=== PATIENT | male | born 1955 | race Caucasian/White ===

== ENCOUNTER 2016-02-18 11:31 | Observation (INO) | payer BC, OTHER ==
[~2016-02-18] VITALS: Ht 177.8 cm; Wt 131.5 kg
[2016-02-18 13:26] LABS: MEAN CORPUSCULAR HEMOGLOBIN 26.8 pg (27.0-33.0); MEAN CORPUSCULAR HGB CONC 31.8 g/dl (32.0-36.5); MEAN CORPUSCULAR VOLUME 84.1 fl (80.0-96.0); PLATELET COUNT, AUTOMATED 135 k/mm3 (150-450); RED CELL DISTRIBUTION WIDTH 13.5 % (11.5-14.5); WHITE BLOOD COUNT 5.3 K/mm3 (4.0-10.0)
[2016-02-18 13:35] LABS: CALCIUM LEVEL 8.3 MG/DL (8.8-10.2); CREATININE FOR GFR 1.42 MG/DL (0.70-1.30); GLOMERULAR FILTRATION RATE 53.8 (>49); POTASSIUM SERUM 5.1 MEQ/L (3.5-5.1)
[2016-02-18 13:42] LABS: BASOPHILS 1 % (0-4); EOSINOPHILS 3 % (0-5)
[2016-02-18 13:43] LABS: ANISOCYTOSIS 1+; POIKILOCYTOSIS 1+
--- NOTE | 2016-02-18 13:49 | REP ---
CHEST, TWO VIEWS: There is no evidence of acute infiltrate. No pleural effusion is seen. The heart is normal in size. The mediastinal silhouette is unremarkable. The visualized osseous structures are intact. There are degenerative changes of the spine. IMPRESSION: No acute pulmonary disease. Signed by Feliberto Padilla MD 02/18/2016 05:26 P
[2016-02-18] MEDS ORDERED: ATEN50TA2 PO (15:05)
[2016-02-18] MEDS ORDERED: METF1000 PO (15:05)
[2016-02-18] MEDS ORDERED: OMEP40CA2 PO (15:05)
[2016-02-18] MEDS ORDERED: LOVA40TA PO (15:05)
[2016-02-18] MEDS ORDERED: ASPI1TAB PO (15:05)
[2016-02-18] MEDS ORDERED: FURO40TA2 PO (15:05)
[2016-02-18] MEDS ORDERED: SPIR25TA2 PO (15:05)
[2016-02-18] MEDS ORDERED: DRIS50002 PO (15:05)
[2016-02-18] MEDS ORDERED: SITA50TAB PO (15:05)
[2016-02-18] MEDS ORDERED: FOLI1TAB2 PO (15:05)
[2016-02-18] MEDS ORDERED: GLYB5TA PO (15:05)
[2016-02-18] MEDS ORDERED: GLUCAGON FOR INJ 1 MG VIAL (J1610) SC PRN (15:15)
[2016-02-18] MEDS ORDERED: DEXTROSE 50% 50 ML SYRINGE IV PRN (15:15)
[2016-02-18] MEDS ORDERED: GLUCOSE 4 GM CHEW TABLET PO PRN (15:15)
--- NOTE | 2016-02-18 16:06 | HPEPDOC ---
General Date of Admission Feb 18, 2016 at 15:19 Chief Complaint The patient is a 60-year-old male admitted with a reason for visit of Atypical Chest Pain. Source: Patient Exam Limitations: No limitations History of Present Illness Mr. Willingham is a 60 year old male with past medical history of COPD, diabetes type 2, hypertension, depression who presents this afternoon after he began feeling dizzy (as if the room was spinning) this morning at work, patient also notes that he has had left superior breast,chest pressure for the past 8 years that was also continuously bothering him today-this is chronic. The patient denied the dizziness worsening with standing from a seated or supine position, states that he felt anxious while he was dizzy, but denied sweating, worsening of his chronic shortness of breath from his COPD, cough, pain in his jaw, nausea, vomiting, or loss of consciousness. The patient does admit to increased heartburn for the past 3 weeks that he seems to think it is worsened with physical exertion. Patient admits to a very poor, fatty diet and low physical activity. The patient states that he had a cardiac cath. In [facility] 8 years ago that was clean, ; claims he was also supposed to have a stress test done by [facility] in [facility] but was unable to afford the procedure and thus never had it done. The results of the coronary cath done at [place] showed mild coronary disease in 2007 ( pts outpt cardio office was contacted), he was last seen by the [facility] in 2011. Patient denies headache, blurred vision or any changes in his bowel or urinary habits. Patient also denies being ill recently, denies fevers, chills, muscle aches. Patient states that the left breast, chest pressure is not made worse with palpitation or inspiration, and admits that it does not feel unchanged from the prior 8 years. Patient seemed to be more concerned with the dizziness that he had experienced earlier and was currently still experiencing at bedside exam. Home Medications Scheduled Aspirin (Aspirin 81) 81 Mg Tab 81 MG PO DAILY (Reported) Atenolol (Atenolol) 50 Mg Tab 50 MG PO DAILY (Reported) Folic Acid (Folic Acid) 1 Mg Tab 1 MG PO DAILY (Reported) Furosemide (Furosemide) 40 Mg Tab 40 MG PO DAILY (Reported) Glyburide (Glyburide) 5 Mg Tab 10 MG PO BID (Reported) Lovastatin (Lovastatin) 40 Mg Tab 40 MG PO DAILY (Reported) Metformin Hydrochloride (Metformin HCl) 1,000 Mg Tab 1,000 MG PO BID (Reported ) Omeprazole (Omeprazole) 40 Mg Cap 40 MG PO DAILY (Reported) Sitagliptin (Januvia) 50 Mg Tab 50 MG PO DAILY (Reported) Spironolactone (Spironolactone) 25 Mg Tab 25 MG PO DAILY (Reported) Vitamin D (Drisdol) 50,000 Unit Cap 50,000 UNIT PO QWEEK (Reported) Allergies Coded Allergies: Unclassified Drugs (Unverified Allergy, Unknown, ANTIDEPRESSANT - RASH, 02/18/16) Past Medical History Medical History COPD depression HTN DM2 Surgical History umbilical hernia repair Family History Significant Family History: No pertinent family hx Social History * Smoker: current smoker (2 ppd for past 30 yrs) Alcohol: heavy (4-5 beers a day since teens) Drugs: denies Recent Travel/Sick Contacts: Denies: Recent travel Psychosocial History: No pertinent psych hx Social History 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 Dyspnea Gastrointestinal: Denies: Abdominal Pain, Constipation, Diarrhea, Nausea, Vomiting Genitourinary: Denies: Dysuria, Frequency, Hematuria, Incontinence Hematologic: Denies: Bleeding Excessively, Bruising Neurological: Denies: Incoordination, Numbness, Weakness Psych: Reports: Mood Normal, Denies: Anxiety, Depression, Memory Issues Physical Examination General Exam: Positive: Alert, Cooperative, No Acute Distress Eye Exam: Positive: Conjunctiva & lids normal, EOMI, PERRLA Neck Exam: Positive: Supple, Negative: JVD Chest Exam: Positive: Clear to auscultation, Diminished, Normal air movement, Negative: Rales, Rhonchi Heart Exam: Positive: Normal S1, Normal S2, Rate Normal, Negative: Gallops, Murmurs, Rubs Telemetry: Positive: Other Telemetry: (some bigemingy noted) Abdomen Exam: Positive: Normal bowel sounds, Soft, Negative: Hepatospenomegaly, Mass, Tenderness Extremity Exam: Positive: Edema (+1 right LE), Negative: Clubbing, Cyanosis Skin Exam: Positive: Nl turgor and temperature Vital Signs bp 139/62 hr 70 rr 20 temp 99.1 F 99% on Room air Laboratory Data Labs 24H Laboratory Tests 2 02/18/16 12:47: Anion Gap 9, Anisocytosis 1+, White Blood Count 5.3, Red Blood Count 3.66L, Hemoglobin 9.8L, Hematocrit 30.8L, Mean Corpuscular Volume 84.1, Mean Corpuscular Hemoglobin 26.8L, Mean Corpuscular Hemoglobin Concent 31.8L, Red Cell Distribution Width 13.5, Platelet Count 135L, Neutrophils (%) (Auto) , Lymphocytes (%) (Auto) , Monocytes (%) (Auto) , Eosinophils (%) (Auto) , Basophils (%) (Auto) , Neutrophils # (Auto) , Lymphocytes # (Auto) , Monocytes # (Auto) , Eosinophils # (Auto) , Basophils # (Auto) , Basophils (Manual) 1, Blood Urea Nitrogen 19H, Creatinine 1.42H, Sodium Level 140, Potassium Level 5.1 , Chloride Level 104, Carbon Dioxide Level 27, Calcium Level 8.3L, Total Creatine Kinase 240, Creatine Kinase MB 3.9H, Creatine Kinase MB Relative Index 1.62, Eosinophils (Manual) 3, Glomerular Filtration Rate 53.8, Large Unclassified Cells # , Large Unclassified Cells % , Lymphocytes (Manual) 25, Magnesium Level 2.0, Monocytes (Manual) 4, Neutrophils 67, Platelet Estimate DECREASED, Poikilocytosis 1+, Troponin I 0.10 CBC/BMP Laboratory Tests 02/18/16 12:47 Calcium Level 8.3 L, Total Creatine Kinase 240, Red Blood Count 3.66 L, Mean Corpuscular Volume 84.1, Mean Corpuscular Hemoglobin 26.8 L, Mean Corpuscular Hemoglobin Concent 31.8 L, Red Cell Distribution Width 13.5, Neutrophils (%) ( Auto) , Lymphocytes (%) (Auto) , Monocytes (%) (Auto) , Eosinophils (%) (Auto) , Basophils (%) (Auto) , Neutrophils # (Auto) , Lymphocytes # (Auto) , Monocytes # (Auto) , Eosinophils # (Auto) , Basophils # (Auto) (1) Chest pain, atypical Status: Acute Response to Treatment: Stable Assessment & Plan: Will R/O ACS first set of troponin .10 will repeat and trend repeat EKG in AM admit to tele unit in hospital tele in ED showed some bigeminy- will check Mag level EKG in ED showed some ST depression in lat. leads- no prior EKG to compare pt says pain isn't bothering him, and thus doesn't want anything for the pain (2) HTN (hypertension) Status: Chronic Response to Treatment: Stable Assessment & Plan: BP stable but a bit elevated on presentation to ED, pt states he was nervous will continue home medication- have stopped lasix and spironolactone as pt.'s LORENZO may be from dehydration. continue to monitor (3) Dizziness Status: Acute Response to Treatment: Stable Assessment & Plan: less likely 2/2 cardiac, but will R/O ACS may be due to dehydration pt received 1 L NS in ED will hold home lasix and spironolactone for now- will monitor output orthostatics ordered (4) Diabetes mellitus Status: Chronic Response to Treatment: Stable Assessment & Plan: held oral home medication sliding scale insulin (5) LORENZO (acute kidney injury) Status: Acute Assessment & Plan: creatine 1.4 today only one prior to compare to, 1.1 may be 2/2 dehydration have held home lasix and spironolactone pt received 1 L NS in ED continue to monitor (6) COPD (chronic obstructive pulmonary disease) Status: Chronic Response to Treatment: Stable Assessment & Plan: stable (7) DVT prophylaxis Status: Acute Assessment & Plan: heparin 5000 sc q8h in light of pt lorenzo Plan / VTE VTE Prophylaxis Ordered?: Yes GME ATTESTATION GME ATTESTATION My preceptor for this patient encounter was physically present in the building during the encounter and was fully available. As needed, all aspects of the patient interview, examination, medical decision making process, and medical care plan development were reviewed and approved by the preceptor. Preceptor is aware and concurs with the plan as stated in the body of this note and will attest to such by his/her cosignature. ATTENDING NOTE Attending Note: I have independently examined this patient and all aspects of the exam and treatment decisions have been discussed with the resident. A member of the hospitalist staff will continue to follow this patient through discharge. ARNEL NICOLE DO Feb 18, 2016 16:06 LUCY EASON DO Feb 18, 2016 20:48
[2016-02-18] MEDS: HumaLOG INSULIN (NovoLOG) PER UNIT SC SCH (17:30)
[2016-02-18 19:52] VITALS: BP 158/65
--- NOTE | 2016-02-18 20:40 | EDDOCDS ---
Nurse's Notes [facility] Name: Feliberto Willingham Age: 60 yrs Sex: Male : 1955 Arrival Date: 02/18/2016 Time: 11:31 Bed Family 1 Private MD: Eduardo Echols Diagnosis: Chest pain, unspecified;Ventricular premature depolarization-in [place] Presentation: 02/17 11:34 Presenting complaint: EMS states: heartburn and chest pressure and dizziness for past 2 ms2 weeks---today chest pressure is at worst----hx chf,COPD DM. Presenting complaint: fsbs ---266 on scene. Aspirin was taken [employer]. 325mg given by ems. Adult Sepsis Screening: Adult Sepsis Screening: The patient does not have new or worsening altered mentation. Patient's respiratory rate is less than 22. Systolic blood pressure is greater than 100. Patient has a qSOFA score of 0- Negative Sepsis Screen. Suicide/Homicide risk assessment- the patient denies having any suicidal and/or homicidal ideations and does not present with any other emotional, behavioral or mental health complaints. Status: Patient is not a director of clinical services or dependent. Transition of care: patient was not received from another setting of care. 11:34 Acuity: GRETCHEN Level 3 ms2 11:34 Method Of Arrival: Ambulance ms2 Triage Assessment: 11:44 General: Appears in no apparent distress, Behavior is cooperative. Pain: Location: left ms2 anterior chest Pain currently is 1 out of 10 on a pain scale. Pt Declines HIV testing. The patient is triaged at the bedside. See Assessment in Nurses Notes section of ED record. Neurological: Level of Consciousness is awake, alert, obeys commands. Cardiovascular: Chest pain is described as Pain is 1 out of 10 on a pain scale. radiates Does not radiate. episodes are intermittent began began 2 days ago. Respiratory: No deficits noted. Airway is patent Respiratory effort is even, unlabored, Respiratory pattern is regular, symmetrical. GI: Abdomen is obese. Derm: Skin is pink, warm & dry. Musculoskeletal: Range of motion intact in all extremities. Historical: - Allergies: antidepressent; - Home Meds: 1. metformin 1,000 mg oral tab 2 times per day (Last dose: 02/18/2016 07:00) 2. spironolactone 25 mg Oral tab 1 tab once daily (Last dose: 02/18/2016 07:00) 3. atenolol 50 mg Oral tab 1 tab once daily (Last dose: 02/18/2016 07:00) 4. furosemide 40 mg Oral tab 1 tab once daily (Last dose: 02/18/2016 07:00) 5. glyburide 5 mg Oral tab 2 tabs 2 times per day (Last dose: 02/18/2016 07:00) 6. januvia 50mg--one daily (Last dose: 02/18/2016 07:00) 7. lovastatin 40 mg Oral tab 1 tab once daily (Last dose: 02/18/2016 07:00) 8. folic acid 1 mg Oral tab 1 tab once daily (Last dose: 02/18/2016 07:00) 9. omeprazole 40 mg Oral cpDR 1 cap once daily (Last dose: 02/18/2016 07:00) 10. Mobic 15 mg oral tab 1 tab once daily (Last dose: 02/18/2016 07:00) 11. vitamin D3---50,000 units -once weekly 12. WALMERCDEEZT ON ARSENAL STR. CALLED FOR LIST - PMHx: COPD; DM; HTN; - PSHx: umbilical hernia; - Social history: Smoking status: Patient uses tobacco products, current every day smoker. No barriers to communication noted, The patient speaks fluent [place] Irish. - Family history: Not pertinent. - : The pt / caregiver states he / she is not on anticoagulants. Home medication list is obtained from the patient. - Exposure Risk Screening:: None identified. Screenin:50 Screening information is obtained from the patient. Fall risk: No risks identified. ms2 Assistance ADL's: requires no assistance with activities of daily living. Abuse/DV Screen: The patient / caregiver reports he/she is: not in a situation that causes fear, pain or injury. Nutritional screening:. Nutritional screening: pt has DM. Advance Directives: Currently, there is no health care proxy. There is no active DNR order. There is no living will. There is no Power of Resident Associate. Advance directive information has not previously been placed in an [facility] medical record. Further advance directive information is declined. home support is adequate. Assessment: 11:46 Cardiovascular: Rhythm is sinus rhythm No ectopy. ms2 12:53 General: Appears in no apparent distress, Behavior is cooperative, pt states still a ms2 little dizzy. Neurological: Level of Consciousness is awake, alert, obeys commands. Respiratory: No deficits noted. Airway is patent Respiratory effort is even, unlabored, Respiratory pattern is regular, symmetrical. Derm: Skin is pink, warm & dry. Musculoskeletal: Range of motion intact in all extremities. 13:18 Adult Sepsis Screening: The patient does not have new or worsening altered mentation. ms2 Patient's respiratory rate is less than 22. Systolic blood pressure is greater than 100. Patient has a qSOFA score of 0- Negative Sepsis Screen. General: Appears in no apparent distress, dr thakkar aware pt walked to BR and slight dizziness only(at 1300)---pt currently in bigeminy---pt states does not notice any skipping of beats ---only at times hears heartbeat in ears with lying down. Cardiovascular: Rhythm is BIgeminy. Respiratory: No deficits noted. Derm: Skin is pink, warm & dry. Musculoskeletal: No deficits noted. Range of motion intact in all extremities. 14:28 General: Appears. Pain: Denies pain. Neurological: No deficits noted. Cardiovascular: ms2 Rhythm is sinus rhythm with unifocal PVCs. Respiratory: No deficits noted. Derm: Skin is pink, warm & dry. Musculoskeletal: Range of motion intact in all extremities. 14:39 General: hospitalist in seeing pt. ms2 15:50 Adult Sepsis Screening: The patient does not have new or worsening altered mentation. ms2 Patient's respiratory rate is less than 22. Systolic blood pressure is greater than 100. Patient has a qSOFA score of 0- Negative Sepsis Screen. General: Appears in no apparent distress, given box lunch. Behavior is cooperative. Neurological: Level of Consciousness is awake, alert, obeys commands. Cardiovascular: Rhythm is sinus rhythm with unifocal PVCs. Respiratory: No deficits noted. GI: Abdomen is obese. Derm: Skin is pink, warm & dry. Musculoskeletal: Range of motion intact in all extremities. 16:54 General: Appears in no apparent distress, Behavior is cooperative. Pain: Denies pain. ms2 Neurological: No deficits noted. Cardiovascular: Rhythm is sinus rhythm with unifocal PVCs. Respiratory: No deficits noted. Derm: Skin is pink, warm & dry. Musculoskeletal: No deficits noted. 17:22 General: Appears in no apparent distress, comfortable. Pain: Denies pain. Neurological: ms2 No deficits noted. Cardiovascular: Rhythm is sinus rhythm with unifocal PVCs. Derm: Skin is pink, warm & dry. 18:30 General: Appears in no apparent distress, pt impatient on wait to floor. Behavior is ms2 cooperative. Pain: Denies pain. Neurological: No deficits noted. Cardiovascular: Rhythm is sinus rhythm with unifocal PVCs. Respiratory: Respiratory effort is even, unlabored. Derm: Skin is pink, warm & dry. 19:35 General: Appears in no apparent distress, comfortable, Behavior is cooperative, took ms2 dinner well. Pain: Denies pain. Neurological: Level of Consciousness is awake, alert, obeys commands. Cardiovascular: Rhythm is sinus rhythm No ectopy. Respiratory: No deficits noted. Airway is patent Respiratory effort is even, unlabored, Respiratory pattern is regular, symmetrical. Derm: Skin is pink, warm & dry. Musculoskeletal: Range of motion intact in all extremities. Vital Signs: 11:43 BP 172 / 77; Pulse 70; Resp 20 S; Temp 99.1(T); Pulse Ox 99% on R/A; Pain 02/21; ms2 11:47 BP 172 / 77 LA Sitting (auto/lg); Pulse 76; Resp 18; Temp 99.1(O); Pulse Ox 98% on R/A; jrd Weight 131.54 kg (R); Height 5 ft. 10 in. (177.80 cm) (R); Pain 02/21; 12:14 BP 145 / 68 (auto/); ms2 12:15 Pulse 66 MON; Pulse Ox 97% ; ms2 12:29 BP 134 / 63 (auto/); ms2 12:30 Pulse 70 MON; ms2 12:44 BP 136 / 59 (auto/); ms2 12:45 Pulse 66 MON; Resp 20 S; Pulse Ox 97% on R/A; ms2 12:53 BP 146 / 67 Supine (auto/); ms2 12:53 Pulse 66 MON; Resp 20 S; Pulse Ox 98% ; ms2 12:55 BP 130 / 79 Sitting (auto/); ms2 12:55 Pulse 66 MON; Resp 20 S; Pulse Ox 97% ; ms2 12:57 BP 145 / 64 Standing (auto/); ms2 12:57 Pulse 76 MON; Resp 20 S; Pulse Ox 96% ; ms2 13:14 BP 139 / 60 (auto/); ms2 13:15 Pulse 64 MON; Resp 20 S; Pulse Ox 97% ; ms2 13:29 BP 144 / 65 (auto/); ms2 13:30 Pulse 64 MON; Resp 20 S; Pulse Ox 98% ; ms2 13:44 BP 130 / 59 (auto/); ms2 13:45 Pulse 66 MON; Resp 20 S; Pulse Ox 97% ; ms2 13:59 BP 132 / 59 (auto/); ms2 14:00 Pulse 64 MON; Resp 20 S; Pulse Ox 97% ; ms2 14:14 BP 135 / 63 (auto/); ms2 14:15 Pulse 68 MON; Pulse Ox 98% ; ms2 14:29 BP 139 / 62 (auto/); ms2 14:30 Pulse 68 MON; Resp 20 S; Pulse Ox 98% ; ms2 14:35 BP 128 / 61 (auto/); ms2 14:35 Pulse 70 MON; Resp 20 S; Pulse Ox 98% ; ms2 14:44 BP 146 / 65 (auto/); ms2 14:45 Pulse 70 MON; Resp 20 S; Pulse Ox 98% ; ms2 14:59 BP 134 / 64 (auto/); ms2 15:00 Pulse 64 MON; Resp 20 S; Pulse Ox 97% ; ms2 15:14 BP 135 / 62 (auto/); ms2 15:15 Pulse 70 MON; Resp 20 S; Pulse Ox 98% ; ms2 15:29 BP 168 / 74 (auto/); ms2 15:30 Pulse 68 MON; Resp 20 S; Pulse Ox 97% ; ms2 15:44 BP 126 / 56 (auto/); ms2 15:45 Pulse 64 MON; Resp 20 S; Pulse Ox 98% ; ms2 15:59 BP 135 / 63 (auto/); ms2 16:00 Pulse 70 MON; Resp 20 S; ms2 16:14 BP 125 / 101 (auto/); ms2 16:14 Pulse 70 MON; Resp 20 S; Pulse Ox 98% ; ms2 16:44 BP 123 / 58 (auto/); ms2 16:45 Pulse 64 MON; Resp 20 S; Pulse Ox 96% ; ms2 19:31 BP 132 / 74; Pulse 67; Resp 20 S; Temp 98.6(O); Pulse Ox 98% on R/A; Pain 0/10; ms2 11:47 Body Mass Index 41.61 (131.54 kg, 177.80 cm) jrd ED Course: 11:32 Patient visited by Kailyn Jj, Director Specialty. lbd 11:32 Patient moved to Waiting lbd 11:33 Eduardo Echols is Private Physician. lbd 11:33 Jonatan Can,BENJA is Primary Nurse. lbd 11:33 Patient moved to 20 lbd 11:34 Patient visited by Jonatan Can,BENJA. ms2 11:37 Triage Initiated ms2 11:45 Sebastien Thakkar MD is Attending Physician. br1 11:47 The patient / caregiver is instructed regarding the plan of care and ED course. Cardiac ms2 monitor on. Pulse ox on. NIBP on. 11:47 No procedures done that require assistance. ms2 11:47 EKG done. (by ED staff). Reviewed by Sebastien Thakkar MD. jrd 11:51 Patient visited by Kodak Cano PCA. jrd 11:55 Patient visited by Sebastien Thakkar MD. br1 12:48 Patient visited by Jonatan Can RN. ms2 12:48 Basic Metabolic Profile Sent. ms2 12:48 CBC with Diff Sent. ms2 12:48 Cardiac Injury Profile Sent. ms2 12:48 Troponin Sent. ms2 12:48 IV is patent, is intact, is free of redness or swelling. pt has a #18 in left ac by [facility] ems--site clear. 12:53 [facility] Payment Agreement was scanned into [employer] and attached to record. pm4 12:59 Patient visited by Jonatan Can,BENJA. ms2 13:18 Patient visited by Jonatan Can,BENJA. ms2 13:29 PLATELET ESTIMATE Sent. ms2 13:29 DIFFERENTIAL NO CHARGE Sent. ms2 13:33 PCR was scanned into [employer] and attached to record. jrd 14:01 Chest, 2 View (pa\E\lat) Returned. EDMS 14:11 Shadi Pool DO is Hospitalizing Provider. br1 14:34 The patient / caregiver is instructed regarding the plan of care and ED course. Cardiac ms2 monitor on. Pulse ox on. NIBP on. 14:34 IV is intact, is free of redness or swelling. ms2 15:33 Written Provider Order was scanned into [employer] and attached to record. lbd 15:50 The patient / caregiver is instructed regarding the plan of care and ED course. Cardiac ms2 monitor on. Pulse ox on. NIBP on. 15:50 IV is intact, is free of redness or swelling. on a pump. ms2 16:02 Patient visited by Jonatan Can RN. ms2 16:38 Patient visited by Jonatan Can RN. ms2 16:38 pcu has received --will give to BENJA Staton. ms2 16:48 per benja staton ---room not yet ready --he will call. ms2 16:54 The patient / caregiver is instructed regarding the plan of care and ED course. Cardiac ms2 monitor on. Pulse ox on. NIBP on. 16:54 IV is patent, is intact, is free of redness or swelling. solution is infusing as ms2 ordered. 17:22 The patient / caregiver is instructed regarding the plan of care and ED course. Cardiac ms2 monitor on. Pulse ox on. NIBP on. 17:22 IV is patent, is intact, is free of redness or swelling. ms2 17:49 Chest, 2 View (pa\E\lat) Returned. EDMS 18:30 The patient / caregiver is instructed regarding the plan of care and ED course. Cardiac ms2 monitor on. Pulse ox on. NIBP on. 18:40 floor called --room ready but per floor to near change of shift. ms2 19:06 Patient visited by Marko Kirk, LADONNA. kb5 19:31 Patient visited by Jonatan Can RN. ms2 19:35 The patient / caregiver is instructed regarding the plan of care and ED course. Cardiac ms2 monitor on. Pulse ox on. NIBP on. 19:36 IV is patent, is intact, is free of redness or swelling. solution is infusing as ms2 ordered. on a pump. 20:06 Patient visited by Marko Krik, SHOE MAKER. kb5 20:23 Patient moved to Family 1 ml3 Administered Medications: 15:46 Drug: NS 0.9% 1000 ml [sodium chloride 0.9 % intravenous solution] Route: IV; Rate: 100 ms2 mL/hr; Site: left antecubital; Intake: 16:51 PO: 590.00ml; IV: 0.00ml; Total: 590.00ml. ms2 19:35 IV: 300.00ml (NS); Total: 890.00ml. ms2 16:51 voided x2 in ed ms2 Order Results: Lab Order: Basic Metabolic Profile; SPEC'M 02/18/16 12:47 Test: GLUCOSE, FASTING; Value: 293; Range: 80-110; Abnormal: Above high normal; Units: MG/DL; Status: F Test: BLOOD UREA NITROGEN; Value: 19; Range: 7-18; Abnormal: Above high normal; Units: MG/DL; Status: F Test: CREATININE FOR GFR; Value: 1.42; Range: 0.70-1.30; Abnormal: Above high normal; Units: MG/DL; Status: F Test: GLOMERULAR FILTRATION RATE; Value: 53.8; Range: >49; Status: F Test: SODIUM LEVEL; Value: 140; Range: 136-145; Units: MEQ/L; Status: F Test: POTASSIUM SERUM; Value: 5.1; Range: 3.5-5.1; Units: MEQ/L; Status: F Test: CHLORIDE LEVEL; Value: 104; Range: 98-107; Units: MEQ/L; Status: F Test: CARBON DIOXIDE LEVEL; Value: 27; Range: 21-32; Units: MEQ/L; Status: F Test: ANION GAP; Value: 9; Range: 8-16; Units: MEQ/L; Status: F Test: CALCIUM LEVEL; Value: 8.3; Range: 8.8-10.2; Abnormal: Below low normal; Units: MG/DL; Status: F Test Note: ; Units are mL/min/1.73 m2 Chronic Kidney Disease Staging per NKF: Stage I & II GFR >=60 Normal to Mildly Decreased Stage III GFR 30-59 Moderately Decreased Stage IV GFR 15-29 Severely Decreased Stage V GFR <15 Very Little GFR Left ESRD GFR <15 on PLAYGROUND MONITOR Lab Order: CBC with Diff; SPEC'M 02/18/16 12:47 Test: WHITE BLOOD COUNT; Value: 5.3; Range: 4.0-10.0; Units: K/mm3; Status: F Test: RED BLOOD COUNT; Value: 3.66; Range: 4.30-6.10; Abnormal: Below low normal; Units: M/mm3; Status: F Test: HEMOGLOBIN; Value: 9.8; Range: 14.0-18.0; Abnormal: Below low normal; Units: g/dl; Status: F Test: HEMATOCRIT; Value: 30.8; Range: 42.0-52.0; Abnormal: Below low normal; Units: %; Status: F Test: MEAN CORPUSCULAR VOLUME; Value: 84.1; Range: 80.0-96.0; Units: fl; Status: F Test: MEAN CORPUSCULAR HEMOGLOBIN; Value: 26.8; Range: 27.0-33.0; Abnormal: Below low normal; Units: pg; Status: F Test: MEAN CORPUSCULAR HGB CONC; Value: 31.8; Range: 32.0-36.5; Abnormal: Below low normal; Units: g/dl; Status: F Test: RED CELL DISTRIBUTION WIDTH; Value: 13.5; Range: 11.5-14.5; Units: %; Status: F Test: PLATELET COUNT, AUTOMATED; Value: 135; Range: 150-450; Abnormal: Below low normal; Units: k/mm3; Status: F Test: PLATELET ESTIMATE; Range: NORMAL; Status: I Test: NEUTROPHILS; Value: 67; Range: 35-75; Units: %; Status: F Test: LYMPHOCYTES; Value: 25; Range: 16-52; Units: %; Status: F Test: MONOCYTES; Value: 4; Range: 0-8; Units: %; Status: F Test: EOSINOPHILS; Value: 3; Range: 0-5; Units: %; Status: F Test: BASOPHILS; Value: 1; Range: 0-4; Units: %; Status: F Test: POIKILOCYTOSIS; Value: 1+; Status: F Test: ANISOCYTOSIS; Value: 1+; Status: F Lab Order: Cardiac Injury Profile; SPEC'M 02/18/16 12:47 Test: CPK CREATINE PHOSPHOKINASE; Value: 240; Range: 39-308; Units: U/L; Status: F Test: CK-MB VALUE MASS; Value: 3.9; Range: 0.0-3.6; Abnormal: Above high normal; Units: NG/ML; Status: F Test: MB/CK RELATIVE INDEX; Value: 1.62; Range: < OR =4; Status: F Test Note: ; DIAGNOSIS CRITERIA MMB ng/ml Relative Index (RI) NON-AMI < or = 5 N/A P[place]A ZONE > 5 < or = 4 AMI > 5 > 4 Lab Order: Troponin; [facility] 02/18/16 12:47 Test: TROPONIN I; Value: 0.10; Range: < 0.10; Units: NG/ML; Status: F Test Note: ; Troponin I Reference Interval for [place] Resale Therapy: 99th Percentile= 0.00-0.045 ng/ml Risk Stratification: <= 0.10 ng/ml Decreased Risk for Adverse Clinical Events. 0.10-1.50 ng/ml Increased Risk for Adverse Clinical Events. Evaluation of additional criterion and/or repeat testing in 2-6 hours is suggested to rule out myocardial damage. >= 1.50 ng/ml Indicative of Myocardial Injury. Lab Order: PLATELET ESTIMATE; [facility] 02/18/16 12:47 Test: PLATELET ESTIMATE; Value: DECREASED; Range: NORMAL; Status: F Lab Order: TROPONIN; [facility] 02/18/16 18:46 Test: TROPONIN I; Value: 0.30; Range: < 0.10; Abnormal: High; Units: NG/ML; Status: F Test Note: ; Troponin I Reference Interval for [place] Resale Therapy: 99th Percentile= 0.00-0.045 ng/ml Risk Stratification: <= 0.10 ng/ml Decreased Risk for Adverse Clinical Events. 0.10-1.50 ng/ml Increased Risk for Adverse Clinical Events. Evaluation of additional criterion and/or repeat testing in 2-6 hours is suggested to rule out myocardial damage. >= 1.50 ng/ml Indicative of Myocardial Injury. Lab Order: MAGNESIUM LEVEL; [facility] 02/18/16 12:47 Test: MAGNESIUM LEVEL; Value: 2.0; Range: 1.8-2.4; Units: MG/DL; Status: F Radiology Order: Chest, 2 View (pa\E\lat) Test: Chest, 2 View (pa\E\lat) REASON FOR EXAMINATION: Chest Pain; CHEST, TWO VIEWS:; ; There is no evidence of acute infiltrate.; ; No pleural effusion is seen.; ; The heart is normal in size.; ; The mediastinal silhouette is unremarkable.; ; The visualized osseous structures are intact.; ; There are degenerative changes of the spine.; ; IMPRESSION:; ; No acute pulmonary disease.; ; ; Signed by; Feliberto Padilla MD 02/18/2016 05:26 P; Outcome: 14:11 Decision to Hospitalize by Provider. br1 18:30 Discharge Assessment: patient administered narcotics - no. The following High Risk ms2 Discharge criteria are identified: None. Admitted to PCU accompanied by nurse, accompanied by tech, via stretcher, on monitor, with chart. Condition: stable. No special radiology studies were completed. Property :Personal belongings accompany Pt. 20:40 Patient left the ED. ml3 Signatures: Dispatcher [employer] EDMS Kailyn Jj, Director Specialty Unit lbd Jonatan Can,RN RN ms2 Georgi, César, Director Specialty Unit ml3 Marko Kirk, SHOE MAKER SHOE MAKER kb5 Sebastien Thakkar MD MD br1 Kodak aCno, SHOE MAKER SHOE MAKER jrd Neri Trejo, Reg Reg pm4 Corrections: (The following items were deleted from the chart) 11:59 11:43 Home Meds: glyburide 5 mg Oral tab 1 tab 2 times per day (Last Dose: 02/18/2016 ms2 07:00); ms2 13:05 12:55 Pulse 66bpm; Monitor; Pulse Ox 97%; ms2 ms2 13:05 12:53 Pulse 66bpm; Monitor; Pulse Ox 98%; ms2 ms2 13:05 12:57 BP 145 / 64 Auto; ms2 ms2 13:05 12:57 Pulse 76bpm; Monitor; Pulse Ox 96%; ms2 ms2 MTDD
--- NOTE | 2016-02-18 20:40 | EDDOCDS ---
Physician Documentation [facility] Name: Feliberto Willingham Age: 60 yrs Sex: Male : 1955 Arrival Date: 02/18/2016 Time: 11:31 Bed Family 1 Private MD: Eduardo Echols Disposition: 02/18/16 14:11 Hospitalization ordered by Shadi Pool for Inpatient Admission. Preliminary diagnosis are Chest pain, unspecified, Ventricular premature depolarization - in [place]. - Bed requested for PCU. - Status is Inpatient Admission. ml3 - Condition is Stable. - Problem is new. - Symptoms are unchanged. Historical: - Allergies: antidepressent; - Home Meds: 1. metformin 1,000 mg oral tab 2 times per day (Last dose: 02/18/2016 07:00) 2. spironolactone 25 mg Oral tab 1 tab once daily (Last dose: 02/18/2016 07:00) 3. atenolol 50 mg Oral tab 1 tab once daily (Last dose: 02/18/2016 07:00) 4. furosemide 40 mg Oral tab 1 tab once daily (Last dose: 02/18/2016 07:00) 5. glyburide 5 mg Oral tab 2 tabs 2 times per day (Last dose: 02/18/2016 07:00) 6. januvia 50mg--one daily (Last dose: 02/18/2016 07:00) 7. lovastatin 40 mg Oral tab 1 tab once daily (Last dose: 02/18/2016 07:00) 8. folic acid 1 mg Oral tab 1 tab once daily (Last dose: 02/18/2016 07:00) 9. omeprazole 40 mg Oral cpDR 1 cap once daily (Last dose: 02/18/2016 07:00) 10. Mobic 15 mg oral tab 1 tab once daily (Last dose: 02/18/2016 07:00) 11. vitamin D3---50,000 units -once weekly 12. BETTYT ON FLAVIO STR. CALLED FOR LIST - PMHx: COPD; DM; HTN; - PSHx: umbilical hernia; - Social history: Smoking status: Patient uses tobacco products, current every day smoker. No barriers to communication noted, The patient speaks fluent Thai. - Family history: Not pertinent. - : The pt / caregiver states he / she is not on anticoagulants. Home medication list is obtained from the patient. - Exposure Risk Screening:: None identified. Vital Signs: 02/17 11:43 BP 172 / 77; Pulse 70; Resp 20 S; Temp 99.1(T); Pulse Ox 99% on R/A; Pain 02/21; ms2 11:47 BP 172 / 77 LA Sitting (auto/lg); Pulse 76; Resp 18; Temp 99.1(O); Pulse Ox 98% on R/A; jrd Weight 131.54 kg / 290 lbs (R); Height 5 ft. 10 in. (177.80 cm) (R); Pain 02/21; 12:14 BP 145 / 68 (auto/); ms2 12:15 Pulse 66 MON; Pulse Ox 97% ; ms2 12:29 BP 134 / 63 (auto/); ms2 12:30 Pulse 70 MON; ms2 12:44 BP 136 / 59 (auto/); ms2 12:45 Pulse 66 MON; Resp 20 S; Pulse Ox 97% on R/A; ms2 12:53 BP 146 / 67 Supine (auto/); ms2 12:53 Pulse 66 MON; Resp 20 S; Pulse Ox 98% ; ms2 12:55 BP 130 / 79 Sitting (auto/); ms2 12:55 Pulse 66 MON; Resp 20 S; Pulse Ox 97% ; ms2 12:57 BP 145 / 64 Standing (auto/); ms2 12:57 Pulse 76 MON; Resp 20 S; Pulse Ox 96% ; ms2 13:14 BP 139 / 60 (auto/); ms2 13:15 Pulse 64 MON; Resp 20 S; Pulse Ox 97% ; ms2 13:29 BP 144 / 65 (auto/); ms2 13:30 Pulse 64 MON; Resp 20 S; Pulse Ox 98% ; ms2 13:44 BP 130 / 59 (auto/); ms2 13:45 Pulse 66 MON; Resp 20 S; Pulse Ox 97% ; ms2 13:59 BP 132 / 59 (auto/); ms2 14:00 Pulse 64 MON; Resp 20 S; Pulse Ox 97% ; ms2 14:14 BP 135 / 63 (auto/); ms2 14:15 Pulse 68 MON; Pulse Ox 98% ; ms2 14:29 BP 139 / 62 (auto/); ms2 14:30 Pulse 68 MON; Resp 20 S; Pulse Ox 98% ; ms2 14:35 BP 128 / 61 (auto/); ms2 14:35 Pulse 70 MON; Resp 20 S; Pulse Ox 98% ; ms2 14:44 BP 146 / 65 (auto/); ms2 14:45 Pulse 70 MON; Resp 20 S; Pulse Ox 98% ; ms2 14:59 BP 134 / 64 (auto/); ms2 15:00 Pulse 64 MON; Resp 20 S; Pulse Ox 97% ; ms2 15:14 BP 135 / 62 (auto/); ms2 15:15 Pulse 70 MON; Resp 20 S; Pulse Ox 98% ; ms2 15:29 BP 168 / 74 (auto/); ms2 15:30 Pulse 68 MON; Resp 20 S; Pulse Ox 97% ; ms2 15:44 BP 126 / 56 (auto/); ms2 15:45 Pulse 64 MON; Resp 20 S; Pulse Ox 98% ; ms2 15:59 BP 135 / 63 (auto/); ms2 16:00 Pulse 70 MON; Resp 20 S; ms2 16:14 BP 125 / 101 (auto/); ms2 16:14 Pulse 70 MON; Resp 20 S; Pulse Ox 98% ; ms2 16:44 BP 123 / 58 (auto/); ms2 16:45 Pulse 64 MON; Resp 20 S; Pulse Ox 96% ; ms2 19:31 BP 132 / 74; Pulse 67; Resp 20 S; Temp 98.6(O); Pulse Ox 98% on R/A; Pain 0/10; ms2 11:47 Body Mass Index 41.61 (131.54 kg, 177.80 cm) jrd MDM: 11:38 Hop Separator/Pulse Ox/q 30 min VS ordered. br1 11:39 ECG WITH READING ER PHYS+CARDIAG ordered. EDMS 11:55 IV Saline Lock ordered. br1 11:55 Rhythm Strip to chart ordered. br1 11:55 Undress patient appropriately for examination ordered. br1 11:55 Orthostatic VS ordered. br1 11:56 Basic Metabolic Profile Ordered. EDMS 11:56 CBC with Diff Ordered. EDMS 11:56 Cardiac Injury Profile Ordered. EDMS 11:56 Troponin Ordered. EDMS 11:57 Chest, 2 View (pa\E\lat) Ordered. EDMS 12:33 Financial registration complete. pm4 12:53 [facility] was scanned into [employer] and attached to record. pm4 13:28 DIFFERENTIAL NO CHARGE Ordered. EDMS 13:28 PLATELET ESTIMATE Ordered. EDMS 13:33 PCR was scanned into [employer] and attached to record. jrd 13:43 Basic Metabolic Profile Reviewed. br1 13:43 Cardiac Injury Profile Reviewed. br1 13:43 Troponin Reviewed. br1 13:50 PLATELET ESTIMATE Reviewed. br1 14:13 CBC with Diff Reviewed. br1 14:13 PLATELET ESTIMATE Reviewed. br1 14:13 Chest, 2 View (pa\E\lat) Reviewed. br1 14:14 BED REQUEST+ADM ordered. EDMS 15:06 CONSISTENT CARBOHYDRATES ordered. EDMS 15:06 2 GRAM SODIUM DIET ordered. EDMS 15:08 ELECTROCARDIOGRAM ADULT ordered. EDMS 15:10 TROPONIN Ordered. EDMS 15:22 Admission / Observation Status ordered. EDMS 15:33 Written Provider Order was scanned into [employer] [place] [place] [employer] and attached to record. lbd 15:35 MAGNESIUM LEVEL Ordered. EDMS 16:05 NS 0.9% 1000 ml IV at 100 mL/hr once; per order of hospitalist ordered. ms2 19:30 CARDIAC MARKER PANEL Ordered. EDMS 19:31 COMPLETE BLOOD COUNT Ordered. EDMS 19:31 COMPLETE COMPHRENSIVE METABOLI Ordered. EDMS Administered Medications: 15:46 Drug: NS 0.9% 1000 ml [sodium chloride 0.9 % intravenous solution] Route: IV; Rate: 100 ms2 mL/hr; Site: left antecubital; Signatures: Dispatcher [employer] EDMA Kailyn Jj, Tube Lancer Unit lbd Jonatan Can,BENJA RN ms2 Georgi NimishaVanessa, Tube Lancer Unit ml3 Sebastien Best MD MD br1 Kodak Cano, LADONNA WARDROBE CUSTODIAN jrd Neri Trejo, Reg Reg pm4 The chart was reviewed and I authenticate all verbal orders and agree with the evaluation and treatment provided.Corrections: (The following items were deleted from the chart) 11:59 11:43 Home Meds: glyburide 5 mg Oral tab 1 tab 2 times per day (Last Dose: 02/18/2016 ms2 07:00); ms2 15:24 15:22 MAGNESIUM LEVEL ordered. EDMS EDMS 15:34 15:24 MAGNESIUM LEVEL ordered. EDMS EDMS 18:28 15:08 ECHOCARD,DOPPLER/COLOR FLOW ordered. EDMS EDMS Attachments: 12:53 [facility] Agreement pm4 15:33 Written Provider Order lbd MTDD
[2016-02-18] MEDS ORDERED: HumaLOG INSULIN (NovoLOG) PER UNIT SC SCH (21:00)
[2016-02-18] MEDS ORDERED: SODIUM CHLORIDE 0.9% 1000 ML IV SCH (21:30)
[2016-02-18] MEDS ORDERED: NS 1,000 ML IV SCH (21:45)
[2016-02-18] MEDS: HEPARIN SOD (PORCINE) 5000 UNITS/ML VIAL SQ SCH (21:57)
[2016-02-18 23:59] VITALS: BP 154/70
[2016-02-19 04:22] VITALS: BP 151/66
[2016-02-19 05:48] LABS: MEAN CORPUSCULAR HEMOGLOBIN 26.4 pg (27.0-33.0); MEAN CORPUSCULAR HGB CONC 31.8 g/dl (32.0-36.5); RED CELL DISTRIBUTION WIDTH 13.7 % (11.5-14.5); WHITE BLOOD COUNT 4.7 K/mm3 (4.0-10.0)
[2016-02-19] MEDS: HEPARIN SOD (PORCINE) 5000 UNITS/ML VIAL SQ SCH (05:50)
[2016-02-19 06:04] LABS: ALBUMIN/GLOBULIN RATIO 0.91 (1.00-1.93); ALKALINE PHOSPHATASE 60 U/L (45-117); ALT/SGPT 44 U/L (12-78); ANION GAP 8 MEQ/L (8-16); AST/SGOT 47 U/L (15-37); BILIRUBIN,TOTAL 0.4 MG/DL (0.2-1.0); BLOOD UREA NITROGEN 17 MG/DL (7-18); CALCIUM LEVEL 8.7 MG/DL (8.8-10.2); CARBON DIOXIDE LEVEL 26 MEQ/L (21-32); CHLORIDE LEVEL 109 MEQ/L (98-107); CREATININE FOR GFR 1.08 MG/DL (0.70-1.30); GLOMERULAR FILTRATION RATE > 60.0 (>49); GLUCOSE, FASTING 101 MG/DL (80-110); SODIUM LEVEL 143 MEQ/L (136-145); TOTAL PROTEIN 6.3 GM/DL (6.4-8.2)
[2016-02-19] MEDS: HumaLOG INSULIN (NovoLOG) PER UNIT SC SCH (07:30)
[2016-02-19 08:00] VITALS: BP 163/79
--- NOTE | 2016-02-19 08:32 | ECGEPIP ---
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
[2016-02-19 08:38] VITALS: BP 163/79
[2016-02-19] MEDS ORDERED: OMEPRAZOLE 20 MG CAP PO SCH (09:00)
[2016-02-19] MEDS ORDERED: SPIRONOLACTONE 25 MG TAB PO SCH (09:00)
[2016-02-19] MEDS ORDERED: ATENOLOL 50 MG TAB PO SCH (09:00)
[2016-02-19] MEDS ORDERED: NICOTINE 21MG/24HR 1 EA TRANSDERMAL TD SCH (09:00)
[2016-02-19] MEDS ORDERED: SIMVASTATIN 40 MG TAB PO SCH (09:00)
[2016-02-19] MEDS ORDERED: FOLIC ACID 1 MG TAB PO SCH (09:00)
[2016-02-19] MEDS ORDERED: ASPIRIN 81 MG ENTERIC TAB PO SCH (09:00)
[2016-02-19] MEDS ORDERED: FUROSEMIDE 40 MG TAB PO SCH (09:00)
[2016-02-19] MEDS ORDERED: FURO20TA2 PO (09:46)
--- NOTE | 2016-02-19 15:03 | ECGEPIP ---
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
--- NOTE | 2016-02-19 20:34 | DSES ---
DATE OF ADMISSION: 02/18/2016 DATE OF DISCHARGE: 02/19/2016 ATTENDING PHYSICIAN: Virginia Echols MD PRIMARY CARE PROVIDER: Eduardo Echols MD CONSULTING PHYSICIANS: None. CONDITION ON DISCHARGE: Stable. FINAL DIAGNOSIS: Chest pain, less likely secondary to cardiac etiology. PROCEDURES: None. HISTORY OF PRESENT ILLNESS: Patient is a 60-year-old male with a past medical history of chronic obstructive pulmonary disease (COPD), diabetes mellitus type 2, hypertension, and depression, who presented to the emergency room with complaints of dizziness. Patient was having dizziness since this morning, the room was spinning. He also noted that he had associated left chest wall pressure. Patient also complained of feeling anxious and dizzy. He apparently has chronic shortness of breath from his COPD. He denies cough, nausea, vomiting, or loss of consciousness. He reported the chest pain was substernal and to the left side, was continuous for prolonged duration, no alleviating or aggravating factors. Patient had a cardiac catheterization in 2005 in [place] and it was negative. He did not have any stents put in. He follows with Dr. Dyson, section chief, in [place]. HOSPITAL COURSE: 1. Chest pain, less likely secondary to cardiac etiology, less likely non-ST segment elevation myocardial infarction (NSTEMI), possibly related to gastrointestinal (GI) etiology. Patient's EKG did not reveal any ischemic changes. Troponins have trended up on the first three sets to a maximum of 0.35, but have trended down to 0.26 afterwards. EKG reveals no additional changes this morning. Patient denied any chest pain this morning. He has continued with his home medications. 2. Dizziness. Has resolved. 3. Acute kidney injury. Creatinine was elevated at 1.42 on admission, it is now down to 1.08. Patient's diuretics have been reduced upon discharge. 4. Diabetes. He has been put on insulin sliding scale. 5. COPD. No evidence of wheezing. COPD is well-controlled. 6. Deep venous thrombosis (DVT) prophylaxis. Has been put on heparin subcutaneous. DISCHARGE MEDICATIONS: Patient has been discharged home with the following: - aspirin 81 - atenolol 50 - folic acid 1 by mouth daily - glyburide 5 by mouth twice a day - lovastatin 40 mg by mouth daily - metformin 1000 twice a day - omeprazole 40 by mouth daily - sitagliptin 50 mg by mouth daily - spironolactone 25 mg by mouth daily - vitamin D 50,000 units by mouth weekly Change in medications include: - furosemide 20 mg by mouth daily Patient has been advised to followup with his section chief and primary care provider within the next 7 days. He has been advised to call to confirm/schedule an appointment. He has been advised to remain compliant with treatment plan and recommendations and to return the emergency room if he experiences any problems. TIME SPENT ON DISCHARGE: 35 minutes.
--- NOTE | 2016-02-22 09:51 | EDDOCDS ---
Nurse's Notes [facility] Name: Feliberto Willingham Age: 60 yrs Sex: Male : 1955 Arrival Date: 02/18/2016 Time: 11:31 Bed Family 1 Private MD: Eduardo Echols Diagnosis: Chest pain, unspecified;Ventricular premature depolarization-in Bigeminy Presentation: 02/17 11:34 Presenting complaint: EMS states: heartburn and chest pressure and dizziness for past 2 ms2 weeks---today chest pressure is at worst----hx chf,COPD DM. Presenting complaint: fsbs ---266 on scene. 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 325mg given by ems. Adult Sepsis Screening: Adult Sepsis Screening: The patient does not have new or worsening altered mentation. Patient's respiratory rate is less than 22. Systolic blood pressure is greater than 100. Patient has a qSOFA score of 0- Negative Sepsis Screen. Suicide/Homicide risk assessment- the patient denies having any suicidal and/or homicidal ideations and does not present with any other emotional, behavioral or mental health complaints. Status: Patient is not a business services sales representative or dependent. Transition of care: patient was not received from another setting of care. 11:34 Acuity: GRETCHEN Level 3 ms2 11:34 Method Of Arrival: Ambulance ms2 Triage Assessment: 11:44 General: Appears in no apparent distress, Behavior is cooperative. Pain: Location: left ms2 anterior chest Pain currently is 1 out of 10 on a pain scale. Pt Declines HIV testing. The patient is triaged at the bedside. See Assessment in Nurses Notes section of ED record. Neurological: Level of Consciousness is awake, alert, obeys commands. Cardiovascular: Chest pain is described as Pain is 1 out of 10 on a pain scale. radiates Does not radiate. episodes are intermittent began began 2 days ago. Respiratory: No deficits noted. Airway is patent Respiratory effort is even, unlabored, Respiratory pattern is regular, symmetrical. GI: Abdomen is obese. Derm: Skin is pink, warm & dry. Musculoskeletal: Range of motion intact in all extremities. Historical: - Allergies: antidepressent; - Home Meds: 1. metformin 1,000 mg oral tab 2 times per day (Last dose: 02/18/2016 07:00) 2. spironolactone 25 mg Oral tab 1 tab once daily (Last dose: 02/18/2016 07:00) 3. atenolol 50 mg Oral tab 1 tab once daily (Last dose: 02/18/2016 07:00) 4. furosemide 40 mg Oral tab 1 tab once daily (Last dose: 02/18/2016 07:00) 5. glyburide 5 mg Oral tab 2 tabs 2 times per day (Last dose: 02/18/2016 07:00) 6. januvia 50mg--one daily (Last dose: 02/18/2016 07:00) 7. lovastatin 40 mg Oral tab 1 tab once daily (Last dose: 02/18/2016 07:00) 8. folic acid 1 mg Oral tab 1 tab once daily (Last dose: 02/18/2016 07:00) 9. omeprazole 40 mg Oral cpDR 1 cap once daily (Last dose: 02/18/2016 07:00) 10. Mobic 15 mg oral tab 1 tab once daily (Last dose: 02/18/2016 07:00) 11. vitamin D3---50,000 units -once weekly 12. WALMERCEDEZT ON ARSENAL STR. CALLED FOR LIST - PMHx: COPD; DM; HTN; - PSHx: umbilical hernia; - Social history: Smoking status: Patient uses tobacco products, current every day smoker. No barriers to communication noted, The patient speaks fluent Trinidadian. - Family history: Not pertinent. - : The pt / caregiver states he / she is not on anticoagulants. Home medication list is obtained from the patient. - Exposure Risk Screening:: None identified. Screenin:50 Screening information is obtained from the patient. Fall risk: No risks identified. ms2 Assistance ADL's: requires no assistance with activities of daily living. Abuse/DV Screen: The patient / caregiver reports he/she is: not in a situation that causes fear, pain or injury. Nutritional screening:. Nutritional screening: pt has DM. Advance Directives: Currently, there is no health care proxy. There is no active DNR order. There is no living will. There is no Power of Hand Fur Cleaner. Advance directive information has not previously been placed in an [facility] medical record. Further advance directive information is declined. home support is adequate. Assessment: 11:46 Cardiovascular: Rhythm is sinus rhythm No ectopy. ms2 12:53 General: Appears in no apparent distress, Behavior is cooperative, pt states still a ms2 little dizzy. Neurological: Level of Consciousness is awake, alert, obeys commands. Respiratory: No deficits noted. Airway is patent Respiratory effort is even, unlabored, Respiratory pattern is regular, symmetrical. Derm: Skin is pink, warm & dry. Musculoskeletal: Range of motion intact in all extremities. 13:18 Adult Sepsis Screening: The patient does not have new or worsening altered mentation. ms2 Patient's respiratory rate is less than 22. Systolic blood pressure is greater than 100. Patient has a qSOFA score of 0- Negative Sepsis Screen. General: Appears in no apparent distress, dr thakkar aware pt walked to BR and slight dizziness only(at 1300)---pt currently in bigeminy---pt states does not notice any skipping of beats ---only at times hears heartbeat in ears with lying down. Cardiovascular: Rhythm is BIgeminy. Respiratory: No deficits noted. Derm: Skin is pink, warm & dry. Musculoskeletal: No deficits noted. Range of motion intact in all extremities. 14:28 General: Appears. Pain: Denies pain. Neurological: No deficits noted. Cardiovascular: ms2 Rhythm is sinus rhythm with unifocal PVCs. Respiratory: No deficits noted. Derm: Skin is pink, warm & dry. Musculoskeletal: Range of motion intact in all extremities. 14:39 General: hospitalist in seeing pt. ms2 15:50 Adult Sepsis Screening: The patient does not have new or worsening altered mentation. ms2 Patient's respiratory rate is less than 22. Systolic blood pressure is greater than 100. Patient has a qSOFA score of 0- Negative Sepsis Screen. General: Appears in no apparent distress, given box lunch. Behavior is cooperative. Neurological: Level of Consciousness is awake, alert, obeys commands. Cardiovascular: Rhythm is sinus rhythm with unifocal PVCs. Respiratory: No deficits noted. GI: Abdomen is obese. Derm: Skin is pink, warm & dry. Musculoskeletal: Range of motion intact in all extremities. 16:54 General: Appears in no apparent distress, Behavior is cooperative. Pain: Denies pain. ms2 Neurological: No deficits noted. Cardiovascular: Rhythm is sinus rhythm with unifocal PVCs. Respiratory: No deficits noted. Derm: Skin is pink, warm & dry. Musculoskeletal: No deficits noted. 17:22 General: Appears in no apparent distress, comfortable. Pain: Denies pain. Neurological: ms2 No deficits noted. Cardiovascular: Rhythm is sinus rhythm with unifocal PVCs. Derm: Skin is pink, warm & dry. 18:30 General: Appears in no apparent distress, pt impatient on wait to floor. Behavior is ms2 cooperative. Pain: Denies pain. Neurological: No deficits noted. Cardiovascular: Rhythm is sinus rhythm with unifocal PVCs. Respiratory: Respiratory effort is even, unlabored. Derm: Skin is pink, warm & dry. 19:35 General: Appears in no apparent distress, comfortable, Behavior is cooperative, took ms2 dinner well. Pain: Denies pain. Neurological: Level of Consciousness is awake, alert, obeys commands. Cardiovascular: Rhythm is sinus rhythm No ectopy. Respiratory: No deficits noted. Airway is patent Respiratory effort is even, unlabored, Respiratory pattern is regular, symmetrical. Derm: Skin is pink, warm & dry. Musculoskeletal: Range of motion intact in all extremities. Vital Signs: 11:43 BP 172 / 77; Pulse 70; Resp 20 S; Temp 99.1(T); Pulse Ox 99% on R/A; Pain 02/21; ms2 11:47 BP 172 / 77 LA Sitting (auto/lg); Pulse 76; Resp 18; Temp 99.1(O); Pulse Ox 98% on R/A; jrd Weight 131.54 kg (R); Height 5 ft. 10 in. (177.80 cm) (R); Pain 02/21; 12:14 BP 145 / 68 (auto/); ms2 12:15 Pulse 66 MON; Pulse Ox 97% ; ms2 12:29 BP 134 / 63 (auto/); ms2 12:30 Pulse 70 MON; ms2 12:44 BP 136 / 59 (auto/); ms2 12:45 Pulse 66 MON; Resp 20 S; Pulse Ox 97% on R/A; ms2 12:53 BP 146 / 67 Supine (auto/); ms2 12:53 Pulse 66 MON; Resp 20 S; Pulse Ox 98% ; ms2 12:55 BP 130 / 79 Sitting (auto/); ms2 12:55 Pulse 66 MON; Resp 20 S; Pulse Ox 97% ; ms2 12:57 BP 145 / 64 Standing (auto/); ms2 12:57 Pulse 76 MON; Resp 20 S; Pulse Ox 96% ; ms2 13:14 BP 139 / 60 (auto/); ms2 13:15 Pulse 64 MON; Resp 20 S; Pulse Ox 97% ; ms2 13:29 BP 144 / 65 (auto/); ms2 13:30 Pulse 64 MON; Resp 20 S; Pulse Ox 98% ; ms2 13:44 BP 130 / 59 (auto/); ms2 13:45 Pulse 66 MON; Resp 20 S; Pulse Ox 97% ; ms2 13:59 BP 132 / 59 (auto/); ms2 14:00 Pulse 64 MON; Resp 20 S; Pulse Ox 97% ; ms2 14:14 BP 135 / 63 (auto/); ms2 14:15 Pulse 68 MON; Pulse Ox 98% ; ms2 14:29 BP 139 / 62 (auto/); ms2 14:30 Pulse 68 MON; Resp 20 S; Pulse Ox 98% ; ms2 14:35 BP 128 / 61 (auto/); ms2 14:35 Pulse 70 MON; Resp 20 S; Pulse Ox 98% ; ms2 14:44 BP 146 / 65 (auto/); ms2 14:45 Pulse 70 MON; Resp 20 S; Pulse Ox 98% ; ms2 14:59 BP 134 / 64 (auto/); ms2 15:00 Pulse 64 MON; Resp 20 S; Pulse Ox 97% ; ms2 15:14 BP 135 / 62 (auto/); ms2 15:15 Pulse 70 MON; Resp 20 S; Pulse Ox 98% ; ms2 15:29 BP 168 / 74 (auto/); ms2 15:30 Pulse 68 MON; Resp 20 S; Pulse Ox 97% ; ms2 15:44 BP 126 / 56 (auto/); ms2 15:45 Pulse 64 MON; Resp 20 S; Pulse Ox 98% ; ms2 15:59 BP 135 / 63 (auto/); ms2 16:00 Pulse 70 MON; Resp 20 S; ms2 16:14 BP 125 / 101 (auto/); ms2 16:14 Pulse 70 MON; Resp 20 S; Pulse Ox 98% ; ms2 16:44 BP 123 / 58 (auto/); ms2 16:45 Pulse 64 MON; Resp 20 S; Pulse Ox 96% ; ms2 19:31 BP 132 / 74; Pulse 67; Resp 20 S; Temp 98.6(O); Pulse Ox 98% on R/A; Pain 0/10; ms2 11:47 Body Mass Index 41.61 (131.54 kg, 177.80 cm) jrd ED Course: 11:32 Patient visited by Kailyn Jj, Purchasing Clerk. lbd 11:32 Patient moved to Waiting lbd 11:33 Eduardo Echols is Private Physician. lbd 11:33 Jonatan Can,BENJA is Primary Nurse. lbd 11:33 Patient moved to 20 lbd 11:34 Patient visited by Jonatan Can,BENJA. ms2 11:37 Triage Initiated ms2 11:45 Sebastien Thakkar MD is Attending Physician. br1 11:47 The patient / caregiver is instructed regarding the plan of care and ED course. Cardiac ms2 monitor on. Pulse ox on. NIBP on. 11:47 No procedures done that require assistance. ms2 11:47 EKG done. (by ED staff). Reviewed by Sebastien Thakkar MD. jrd 11:51 Patient visited by Kodak Cano PCA. jrd 11:55 Patient visited by Sebastien Thakkar MD. br1 12:48 Patient visited by Jonatan Can RN. ms2 12:48 Basic Metabolic Profile Sent. ms2 12:48 CBC with Diff Sent. ms2 12:48 Cardiac Injury Profile Sent. ms2 12:48 Troponin Sent. ms2 12:48 IV is patent, is intact, is free of redness or swelling. pt has a #[address] left ac [address] [facility]--site clear. 12:53 [facility] Payment Agreement was scanned into apomio and attached to record. pm4 12:59 Patient visited by Jonatan Can,BENJA. ms2 13:18 Patient visited by Jonatan Can,BENJA. ms2 13:29 PLATELET ESTIMATE Sent. ms2 13:29 DIFFERENTIAL NO CHARGE Sent. ms2 13:33 PCR was scanned into apomio and attached to record. jrd 14:01 Chest, 2 View (pa\E\lat) Returned. EDMS 14:11 Shadi Pool DO is Hospitalizing Provider. br1 14:34 The patient / caregiver is instructed regarding the plan of care and ED course. Cardiac ms2 monitor on. Pulse ox on. NIBP on. 14:34 IV is intact, is free of redness or swelling. ms2 15:33 Written Provider Order was scanned into apomio and attached to record. lbd 15:50 The patient / caregiver is instructed regarding the plan of care and ED course. Cardiac ms2 monitor on. Pulse ox on. NIBP on. 15:50 IV is intact, is free of redness or swelling. on a pump. ms2 16:02 Patient visited by Jonatan Can RN. ms2 16:38 Patient visited by Jonatan Can RN. ms2 16:38 pcu has received --will give to BENJA Staton. ms2 16:48 per benja staton ---room not yet ready --he will call. ms2 16:54 The patient / caregiver is instructed regarding the plan of care and ED course. Cardiac ms2 monitor on. Pulse ox on. NIBP on. 16:54 IV is patent, is intact, is free of redness or swelling. solution is infusing as ms2 ordered. 17:22 The patient / caregiver is instructed regarding the plan of care and ED course. Cardiac ms2 monitor on. Pulse ox on. NIBP on. 17:22 IV is patent, is intact, is free of redness or swelling. ms2 17:49 Chest, 2 View (pa\E\lat) Returned. EDMS 18:30 The patient / caregiver is instructed regarding the plan of care and ED course. Cardiac ms2 monitor on. Pulse ox on. NIBP on. 18:40 floor called --room ready but per floor to near change of shift. ms2 19:06 Patient visited by Marko Kirk PCA. kb5 19:31 Patient visited by Jonatan Can RN. ms2 19:35 The patient / caregiver is instructed regarding the plan of care and ED course. Cardiac ms2 monitor on. Pulse ox on. NIBP on. 19:36 IV is patent, is intact, is free of redness or swelling. solution is infusing as ms2 ordered. on a pump. 20:06 Patient visited by Marko Kirk, SLIP COVER ESTIMATOR. kb5 20:23 Patient moved to Family 1 ml3 02/18 09:03 T-Sheet-- Draft Copy was scanned into apomio and attached to record. gb :04 Trend VS was scanned into apomio and attached to record. gb Administered Medications: 02/17 15:46 Drug: NS 0.9% 1000 ml [sodium chloride 0.9 % intravenous solution] Route: IV; Rate: 100 ms2 mL/hr; Site: left antecubital; Attachments: 09:04 Trend VS gb Intake: 02/17 16:51 PO: 590.00ml; IV: 0.00ml; Total: 590.00ml. ms2 19:35 IV: 300.00ml (NS); Total: 890.00ml. ms2 16:51 voided x2 in ed ms2 Order Results: Lab Order: Basic Metabolic Profile; SPEC'M 02/18/16 12:47 Test: GLUCOSE, FASTING; Value: 293; Range: 80-110; Abnormal: Above high normal; Units: MG/DL; Status: F Test: BLOOD UREA NITROGEN; Value: 19; Range: 7-18; Abnormal: Above high normal; Units: MG/DL; Status: F Test: CREATININE FOR GFR; Value: 1.42; Range: 0.70-1.30; Abnormal: Above high normal; Units: MG/DL; Status: F Test: GLOMERULAR FILTRATION RATE; Value: 53.8; Range: >49; Status: F Test: SODIUM LEVEL; Value: 140; Range: 136-145; Units: MEQ/L; Status: F Test: POTASSIUM SERUM; Value: 5.1; Range: 3.5-5.1; Units: MEQ/L; Status: F Test: CHLORIDE LEVEL; Value: 104; Range: 98-107; Units: MEQ/L; Status: F Test: CARBON DIOXIDE LEVEL; Value: 27; Range: 21-32; Units: MEQ/L; Status: F Test: ANION GAP; Value: 9; Range: 8-16; Units: MEQ/L; Status: F Test: CALCIUM LEVEL; Value: 8.3; Range: 8.8-10.2; Abnormal: Below low normal; Units: MG/DL; Status: F Test Note: ; Units are mL/min/1.73 m2 Chronic Kidney Disease Staging per NKF: Stage I & II GFR >=60 Normal to Mildly Decreased Stage III GFR 30-59 Moderately Decreased Stage IV GFR 15-29 Severely Decreased Stage V GFR <15 Very Little GFR Left ESRD GFR <15 on SH[employer]EMAN Lab Order: CBC with Diff; SPEC'M 02/18/16 12:47 Test: WHITE BLOOD COUNT; Value: 5.3; Range: 4.0-10.0; Units: K/mm3; Status: F Test: RED BLOOD COUNT; Value: 3.66; Range: 4.30-6.10; Abnormal: Below low normal; Units: M/mm3; Status: F Test: HEMOGLOBIN; Value: 9.8; Range: 14.0-18.0; Abnormal: Below low normal; Units: g/dl; Status: F Test: HEMATOCRIT; Value: 30.8; Range: 42.0-52.0; Abnormal: Below low normal; Units: %; Status: F Test: MEAN CORPUSCULAR VOLUME; Value: 84.1; Range: 80.0-96.0; Units: fl; Status: F Test: MEAN CORPUSCULAR HEMOGLOBIN; Value: 26.8; Range: 27.0-33.0; Abnormal: Below low normal; Units: pg; Status: F Test: MEAN CORPUSCULAR HGB CONC; Value: 31.8; Range: 32.0-36.5; Abnormal: Below low normal; Units: g/dl; Status: F Test: RED CELL DISTRIBUTION WIDTH; Value: 13.5; Range: 11.5-14.5; Units: %; Status: F Test: PLATELET COUNT, AUTOMATED; Value: 135; Range: 150-450; Abnormal: Below low normal; Units: k/mm3; Status: F Test: PLATELET ESTIMATE; Range: NORMAL; Status: I Test: NEUTROPHILS; Value: 67; Range: 35-75; Units: %; Status: F Test: LYMPHOCYTES; Value: 25; Range: 16-52; Units: %; Status: F Test: MONOCYTES; Value: 4; Range: 0-8; Units: %; Status: F Test: EOSINOPHILS; Value: 3; Range: 0-5; Units: %; Status: F Test: BASOPHILS; Value: 1; Range: 0-4; Units: %; Status: F Test: POIKILOCYTOSIS; Value: 1+; Status: F Test: ANISOCYTOSIS; Value: 1+; Status: F Lab Order: Cardiac Injury Profile; SPEC'M 02/18/16 12:47 Test: CPK CREATINE PHOSPHOKINASE; Value: 240; Range: 39-308; Units: U/L; Status: F Test: CK-MB VALUE MASS; Value: 3.9; Range: 0.0-3.6; Abnormal: Above high normal; Units: NG/ML; Status: F Test: MB/CK RELATIVE INDEX; Value: 1.62; Range: < OR =4; Status: F Test Note: ; DIAGNOSIS CRITERIA MMB ng/ml Relative Index (RI) NON-AMI < or = 5 N/A [place]ONE > 5 < or = 4 AMI > 5 > 4 Lab Order: Troponin; [facility] 02/18/16 12:47 Test: TROPONIN I; Value: 0.10; Range: < 0.10; Units: NG/ML; Status: F Test Note: ; Troponin I Reference Interval for [employer]: 99th Percentile= 0.00-0.045 ng/ml Risk Stratification: <= 0.10 ng/ml Decreased Risk for Adverse Clinical Events. 0.10-1.50 ng/ml Increased Risk for Adverse Clinical Events. Evaluation of additional criterion and/or repeat testing in 2-6 hours is suggested to rule out myocardial damage. >= 1.50 ng/ml Indicative of Myocardial Injury. Lab Order: PLATELET ESTIMATE; [facility] 02/18/16 12:47 Test: PLATELET ESTIMATE; Value: DECREASED; Range: NORMAL; Status: F Lab Order: TROPONIN; [facility] 02/18/16 18:46 Test: TROPONIN I; Value: 0.30; Range: < 0.10; Abnormal: High; Units: NG/ML; Status: F Test Note: ; Troponin I Reference Interval for [employer]: 99th Percentile= 0.00-0.045 ng/ml Risk Stratification: <= 0.10 ng/ml Decreased Risk for Adverse Clinical Events. 0.10-1.50 ng/ml Increased Risk for Adverse Clinical Events. Evaluation of additional criterion and/or repeat testing in 2-6 hours is suggested to rule out myocardial damage. >= 1.50 ng/ml Indicative of Myocardial Injury. Lab Order: MAGNESIUM LEVEL; SPEC' 02/18/16 12:47 Test: MAGNESIUM LEVEL; Value: 2.0; Range: 1.8-2.4; Units: MG/DL; Status: F Radiology Order: Chest, 2 View (pa\E\lat) Test: Chest, 2 View (pa\E\lat) REASON FOR EXAMINATION: Chest Pain; CHEST, TWO VIEWS:; ; There is no evidence of acute infiltrate.; ; No pleural effusion is seen.; ; The heart is normal in size.; ; The mediastinal silhouette is unremarkable.; ; The visualized osseous structures are intact.; ; There are degenerative changes of the spine.; ; IMPRESSION:; ; No acute pulmonary disease.; ; ; Signed by; Feliberto Padilla MD 02/18/2016 05:26 P; Outcome: 14:11 Decision to Hospitalize by Provider. br1 19:35 Discharge Assessment: patient administered narcotics - no. The following High Risk ms2 Discharge criteria are identified: None. Admitted to PCU accompanied by nurse, accompanied by tech, via stretcher, on monitor, with chart. Condition: stable. No special radiology studies were completed. Property :Personal belongings accompany Pt. 20:40 Patient left the ED. ml3 Signatures: Dispatcher [employer] EDMS Kailyn Jj, Purchasing Clerk Unit lbd Jonatan Can RN RN ms2 NeftaliianYessi, Reg Reg gb GeorgiBenjaminVanessa, Purchasing Clerk Unit ml3 Marko Kirk, SLIP COVER ESTIMATOR SLIP COVER ESTIMATOR kb5 Sebastien Thakkar MD MD br1 Kodak Cano, SLIP COVER ESTIMATOR SLIP COVER ESTIMATOR jrd Neri Trejo, Reg Reg pm4 Corrections: (The following items were deleted from the chart) 11:59 11:43 Home Meds: glyburide 5 mg Oral tab 1 tab 2 times per day (Last Dose: 02/18/2016 ms2 07:00); ms2 13:05 12:55 Pulse 66bpm; Monitor; Pulse Ox 97%; ms2 ms2 13:05 12:53 Pulse 66bpm; Monitor; Pulse Ox 98%; ms2 ms2 13:05 12:57 BP 145 / 64 Auto; ms2 ms2 13:05 12:57 Pulse 76bpm; Monitor; Pulse Ox 96%; ms2 ms2 21:43 18:30 Discharge Assessment: patient administered narcotics - no ms2 ms2 21:43 18:30 The following High Risk Discharge criteria are identified: None. Admitted to PCU ms2 accompanied by nurse, accompanied by tech, via stretcher, on monitor, with chart, ms2 21:43 18:30 Condition: stable ms2 ms2 21:43 18:30 No special radiology studies were completed ms2 ms2 21:43 18:30 Property :Personal belongings accompany Pt. ms2 ms2 Chart Complete MTDD
--- NOTE | 2016-02-22 09:51 | EDDOCDS ---
Physician Documentation [facility] Name: Feliberto Willingham Age: 60 yrs Sex: Male : 1955 Arrival Date: 02/18/2016 Time: 11:31 Bed Family 1 Private MD: Eduardo Echols Disposition: 02/18/16 14:11 Hospitalization ordered by Shadi Pool for Inpatient Admission. Preliminary diagnosis are Chest pain, unspecified, Ventricular premature depolarization - in Bigeminy. - Bed requested for PCU. - Status is Inpatient Admission. ml3 - Condition is Stable. - Problem is new. - Symptoms are unchanged. Historical: - Allergies: antidepressent; - Home Meds: 1. metformin 1,000 mg oral tab 2 times per day (Last dose: 02/18/2016 07:00) 2. spironolactone 25 mg Oral tab 1 tab once daily (Last dose: 02/18/2016 07:00) 3. atenolol 50 mg Oral tab 1 tab once daily (Last dose: 02/18/2016 07:00) 4. furosemide 40 mg Oral tab 1 tab once daily (Last dose: 02/18/2016 07:00) 5. glyburide 5 mg Oral tab 2 tabs 2 times per day (Last dose: 02/18/2016 07:00) 6. januvia 50mg--one daily (Last dose: 02/18/2016 07:00) 7. lovastatin 40 mg Oral tab 1 tab once daily (Last dose: 02/18/2016 07:00) 8. folic acid 1 mg Oral tab 1 tab once daily (Last dose: 02/18/2016 07:00) 9. omeprazole 40 mg Oral cpDR 1 cap once daily (Last dose: 02/18/2016 07:00) 10. Mobic 15 mg oral tab 1 tab once daily (Last dose: 02/18/2016 07:00) 11. vitamin D3---50,000 units -once weekly 12. BETTYT ON FLAVIO STR. CALLED FOR LIST - PMHx: COPD; DM; HTN; - PSHx: umbilical hernia; - Social history: Smoking status: Patient uses tobacco products, current every day smoker. No barriers to communication noted, The patient speaks fluent Korean. - Family history: Not pertinent. - : The pt / caregiver states he / she is not on anticoagulants. Home medication list is obtained from the patient. - Exposure Risk Screening:: None identified. Vital Signs: 02/17 11:43 BP 172 / 77; Pulse 70; Resp 20 S; Temp 99.1(T); Pulse Ox 99% on R/A; Pain 02/21; ms2 11:47 BP 172 / 77 LA Sitting (auto/lg); Pulse 76; Resp 18; Temp 99.1(O); Pulse Ox 98% on R/A; jrd Weight 131.54 kg / 290 lbs (R); Height 5 ft. 10 in. (177.80 cm) (R); Pain 02/21; 12:14 BP 145 / 68 (auto/); ms2 12:15 Pulse 66 MON; Pulse Ox 97% ; ms2 12:29 BP 134 / 63 (auto/); ms2 12:30 Pulse 70 MON; ms2 12:44 BP 136 / 59 (auto/); ms2 12:45 Pulse 66 MON; Resp 20 S; Pulse Ox 97% on R/A; ms2 12:53 BP 146 / 67 Supine (auto/); ms2 12:53 Pulse 66 MON; Resp 20 S; Pulse Ox 98% ; ms2 12:55 BP 130 / 79 Sitting (auto/); ms2 12:55 Pulse 66 MON; Resp 20 S; Pulse Ox 97% ; ms2 12:57 BP 145 / 64 Standing (auto/); ms2 12:57 Pulse 76 MON; Resp 20 S; Pulse Ox 96% ; ms2 13:14 BP 139 / 60 (auto/); ms2 13:15 Pulse 64 MON; Resp 20 S; Pulse Ox 97% ; ms2 13:29 BP 144 / 65 (auto/); ms2 13:30 Pulse 64 MON; Resp 20 S; Pulse Ox 98% ; ms2 13:44 BP 130 / 59 (auto/); ms2 13:45 Pulse 66 MON; Resp 20 S; Pulse Ox 97% ; ms2 13:59 BP 132 / 59 (auto/); ms2 14:00 Pulse 64 MON; Resp 20 S; Pulse Ox 97% ; ms2 14:14 BP 135 / 63 (auto/); ms2 14:15 Pulse 68 MON; Pulse Ox 98% ; ms2 14:29 BP 139 / 62 (auto/); ms2 14:30 Pulse 68 MON; Resp 20 S; Pulse Ox 98% ; ms2 14:35 BP 128 / 61 (auto/); ms2 14:35 Pulse 70 MON; Resp 20 S; Pulse Ox 98% ; ms2 14:44 BP 146 / 65 (auto/); ms2 14:45 Pulse 70 MON; Resp 20 S; Pulse Ox 98% ; ms2 14:59 BP 134 / 64 (auto/); ms2 15:00 Pulse 64 MON; Resp 20 S; Pulse Ox 97% ; ms2 15:14 BP 135 / 62 (auto/); ms2 15:15 Pulse 70 MON; Resp 20 S; Pulse Ox 98% ; ms2 15:29 BP 168 / 74 (auto/); ms2 15:30 Pulse 68 MON; Resp 20 S; Pulse Ox 97% ; ms2 15:44 BP 126 / 56 (auto/); ms2 15:45 Pulse 64 MON; Resp 20 S; Pulse Ox 98% ; ms2 15:59 BP 135 / 63 (auto/); ms2 16:00 Pulse 70 MON; Resp 20 S; ms2 16:14 BP 125 / 101 (auto/); ms2 16:14 Pulse 70 MON; Resp 20 S; Pulse Ox 98% ; ms2 16:44 BP 123 / 58 (auto/); ms2 16:45 Pulse 64 MON; Resp 20 S; Pulse Ox 96% ; ms2 19:31 BP 132 / 74; Pulse 67; Resp 20 S; Temp 98.6(O); Pulse Ox 98% on R/A; Pain 0/10; ms2 11:47 Body Mass Index 41.61 (131.54 kg, 177.80 cm) jrd MDM: 11:38 Brim Raiser/Pulse Ox/q 30 min VS ordered. br1 11:39 ECG WITH READING ER PHYS+CARDIAG ordered. EDMS 11:55 IV Saline Lock ordered. br1 11:55 Rhythm Strip to chart ordered. br1 11:55 Undress patient appropriately for examination ordered. br1 11:55 Orthostatic VS ordered. br1 11:56 Basic Metabolic Profile Ordered. EDMS 11:56 CBC with Diff Ordered. EDMS 11:56 Cardiac Injury Profile Ordered. EDMS 11:56 Troponin Ordered. EDMS 11:57 Chest, 2 View (pa\E\lat) Ordered. EDMS 12:33 Financial registration complete. pm4 12:53 [facility] [place] Payment Agreement was scanned into Onehub and attached to record. pm4 13:28 DIFFERENTIAL NO CHARGE Ordered. EDMS 13:28 PLATELET ESTIMATE Ordered. EDMS 13:33 PCR was scanned into Onehub and attached to record. jrd 13:43 Basic Metabolic Profile Reviewed. br1 13:43 Cardiac Injury Profile Reviewed. br1 13:43 Troponin Reviewed. br1 13:50 PLATELET ESTIMATE Reviewed. br1 14:13 CBC with Diff Reviewed. br1 14:13 PLATELET ESTIMATE Reviewed. br1 14:13 Chest, 2 View (pa\E\lat) Reviewed. br1 14:14 BED REQUEST+ADM ordered. EDMS 15:06 CONSISTENT CARBOHYDRATES ordered. EDMS 15:06 2 GRAM SODIUM DIET ordered. EDMS 15:08 ELECTROCARDIOGRAM ADULT ordered. EDMS 15:10 TROPONIN Ordered. EDMS 15:22 Admission / Observation Status ordered. EDMS 15:33 Written Provider Order was scanned into Onehub and attached to record. lbd 15:35 MAGNESIUM LEVEL Ordered. EDMS 16:05 NS 0.9% 1000 ml IV at 100 mL/hr once; per order of hospitalist ordered. ms2 19:30 CARDIAC MARKER PANEL Ordered. EDMS 19:31 COMPLETE BLOOD COUNT Ordered. EDMS 19:31 COMPLETE COMPHRENSIVE METABOLI Ordered. EDMS 0107 09:03 T-Sheet-- Draft Copy was scanned into Onehub and attached to record. gb 09:04 Trend VS was scanned into Onehub and attached to record. gb Administered Medications: 02/17 15:46 Drug: NS 0.9% 1000 ml [sodium chloride 0.9 % intravenous solution] Route: IV; Rate: 100 ms2 mL/hr; Site: left antecubital; Signatures: Dispatcher [employer] EDPA Kailyn Jj, Supervisor Bottle Machines Unit lbd Jonatan Cna RN RN ms2 Yessi Oleary, Reg Reg gb César Laureano, Supervisor Bottle Machines Unit ml3 Sebastien Best MD MD br1 Kodak Cano, WEATHERSTRIP MACHINE OPERATOR WEATHERSTRIP MACHINE OPERATOR jrd Neri Trejo, Reg Reg pm4 The chart was reviewed and I authenticate all verbal orders and agree with the evaluation and treatment provided.Corrections: (The following items were deleted from the chart) 11:59 11:43 Home Meds: glyburide 5 mg Oral tab 1 tab 2 times per day (Last Dose: 02/18/2016 ms2 07:00); ms2 15:24 15:22 MAGNESIUM LEVEL ordered. EDMS EDMS 15:34 15:24 MAGNESIUM LEVEL ordered. EDMS EDMS 18:28 15:08 ECHOCARD,DOPPLER/COLOR FLOW ordered. EDMS EDMS Attachments: 12:53 [facility] Payment Agreement pm4 15:33 Written Provider Order lbd 02/18 09:03 T-Sheet-- Draft Copy gb Chart Complete MTDD
--- NOTE | 2016-02-22 09:51 | EDDOCDS ---
Physician Documentation [facility] Name: Feliberto Willingham Age: 60 yrs Sex: Male : 1955 Arrival Date: 02/18/2016 Time: 11:31 Bed Family 1 Private MD: Eduardo Echols Disposition: 02/18/16 14:11 Hospitalization ordered by Shadi Pool for Inpatient Admission. Preliminary diagnosis are Chest pain, unspecified, Ventricular premature depolarization - in [place]eminy. - Bed requested for PCU. - Status is Inpatient Admission. ml3 - Condition is Stable. - Problem is new. - Symptoms are unchanged. Historical: - Allergies: antidepressent; - Home Meds: 1. metformin 1,000 mg oral tab 2 times per day (Last dose: 02/18/2016 07:00) 2. spironolactone 25 mg Oral tab 1 tab once daily (Last dose: 02/18/2016 07:00) 3. atenolol 50 mg Oral tab 1 tab once daily (Last dose: 02/18/2016 07:00) 4. furosemide 40 mg Oral tab 1 tab once daily (Last dose: 02/18/2016 07:00) 5. glyburide 5 mg Oral tab 2 tabs 2 times per day (Last dose: 02/18/2016 07:00) 6. januvia 50mg--one daily (Last dose: 02/18/2016 07:00) 7. lovastatin 40 mg Oral tab 1 tab once daily (Last dose: 02/18/2016 07:00) 8. folic acid 1 mg Oral tab 1 tab once daily (Last dose: 02/18/2016 07:00) 9. omeprazole 40 mg Oral cpDR 1 cap once daily (Last dose: 02/18/2016 07:00) 10. Mobic 15 mg oral tab 1 tab once daily (Last dose: 02/18/2016 07:00) 11. vitamin D3---50,000 units -once weekly 12. BETTYT ON FLAVIO STR. CALLED FOR LIST - PMHx: COPD; DM; HTN; - PSHx: umbilical hernia; - Social history: Smoking status: Patient uses tobacco products, current every day smoker. No barriers to communication noted, The patient speaks fluent Upper Sorbian. - Family history: Not pertinent. - : The pt / caregiver states he / she is not on anticoagulants. Home medication list is obtained from the patient. - Exposure Risk Screening:: None identified. Vital Signs: 02/17 11:43 BP 172 / 77; Pulse 70; Resp 20 S; Temp 99.1(T); Pulse Ox 99% on R/A; Pain 02/21; ms2 11:47 BP 172 / 77 LA Sitting (auto/lg); Pulse 76; Resp 18; Temp 99.1(O); Pulse Ox 98% on R/A; jrd Weight 131.54 kg / 290 lbs (R); Height 5 ft. 10 in. (177.80 cm) (R); Pain 02/21; 12:14 BP 145 / 68 (auto/); ms2 12:15 Pulse 66 MON; Pulse Ox 97% ; ms2 12:29 BP 134 / 63 (auto/); ms2 12:30 Pulse 70 MON; ms2 12:44 BP 136 / 59 (auto/); ms2 12:45 Pulse 66 MON; Resp 20 S; Pulse Ox 97% on R/A; ms2 12:53 BP 146 / 67 Supine (auto/); ms2 12:53 Pulse 66 MON; Resp 20 S; Pulse Ox 98% ; ms2 12:55 BP 130 / 79 Sitting (auto/); ms2 12:55 Pulse 66 MON; Resp 20 S; Pulse Ox 97% ; ms2 12:57 BP 145 / 64 Standing (auto/); ms2 12:57 Pulse 76 MON; Resp 20 S; Pulse Ox 96% ; ms2 13:14 BP 139 / 60 (auto/); ms2 13:15 Pulse 64 MON; Resp 20 S; Pulse Ox 97% ; ms2 13:29 BP 144 / 65 (auto/); ms2 13:30 Pulse 64 MON; Resp 20 S; Pulse Ox 98% ; ms2 13:44 BP 130 / 59 (auto/); ms2 13:45 Pulse 66 MON; Resp 20 S; Pulse Ox 97% ; ms2 13:59 BP 132 / 59 (auto/); ms2 14:00 Pulse 64 MON; Resp 20 S; Pulse Ox 97% ; ms2 14:14 BP 135 / 63 (auto/); ms2 14:15 Pulse 68 MON; Pulse Ox 98% ; ms2 14:29 BP 139 / 62 (auto/); ms2 14:30 Pulse 68 MON; Resp 20 S; Pulse Ox 98% ; ms2 14:35 BP 128 / 61 (auto/); ms2 14:35 Pulse 70 MON; Resp 20 S; Pulse Ox 98% ; ms2 14:44 BP 146 / 65 (auto/); ms2 14:45 Pulse 70 MON; Resp 20 S; Pulse Ox 98% ; ms2 14:59 BP 134 / 64 (auto/); ms2 15:00 Pulse 64 MON; Resp 20 S; Pulse Ox 97% ; ms2 15:14 BP 135 / 62 (auto/); ms2 15:15 Pulse 70 MON; Resp 20 S; Pulse Ox 98% ; ms2 15:29 BP 168 / 74 (auto/); ms2 15:30 Pulse 68 MON; Resp 20 S; Pulse Ox 97% ; ms2 15:44 BP 126 / 56 (auto/); ms2 15:45 Pulse 64 MON; Resp 20 S; Pulse Ox 98% ; ms2 15:59 BP 135 / 63 (auto/); ms2 16:00 Pulse 70 MON; Resp 20 S; ms2 16:14 BP 125 / 101 (auto/); ms2 16:14 Pulse 70 MON; Resp 20 S; Pulse Ox 98% ; ms2 16:44 BP 123 / 58 (auto/); ms2 16:45 Pulse 64 MON; Resp 20 S; Pulse Ox 96% ; ms2 19:31 BP 132 / 74; Pulse 67; Resp 20 S; Temp 98.6(O); Pulse Ox 98% on R/A; Pain 0/10; ms2 11:47 Body Mass Index 41.61 (131.54 kg, 177.80 cm) jrd MDM: 11:38 Transit Clerk/Pulse Ox/q 30 min VS ordered. br1 11:39 ECG WITH READING ER PHYS+CARDIAG ordered. EDMS 11:55 IV Saline Lock ordered. br1 11:55 Rhythm Strip to chart ordered. br1 11:55 Undress patient appropriately for examination ordered. br1 11:55 Orthostatic VS ordered. br1 11:56 Basic Metabolic Profile Ordered. EDMS 11:56 CBC with Diff Ordered. EDMS 11:56 Cardiac Injury Profile Ordered. EDMS 11:56 Troponin Ordered. EDMS 11:57 Chest, 2 View (pa\E\lat) Ordered. EDMS 12:33 Financial registration complete. pm4 12:53 [facility] [place] Payment Agreement was scanned into eblizz and attached to record. pm4 13:28 DIFFERENTIAL NO CHARGE Ordered. EDMS 13:28 PLATELET ESTIMATE Ordered. EDMS 13:33 PCR was scanned into eblizz and attached to record. jrd 13:43 Basic Metabolic Profile Reviewed. br1 13:43 Cardiac Injury Profile Reviewed. br1 13:43 Troponin Reviewed. br1 13:50 PLATELET ESTIMATE Reviewed. br1 14:13 CBC with Diff Reviewed. br1 14:13 PLATELET ESTIMATE Reviewed. br1 14:13 Chest, 2 View (pa\E\lat) Reviewed. br1 14:14 BED REQUEST+ADM ordered. EDMS 15:06 CONSISTENT CARBOHYDRATES ordered. EDMS 15:06 2 GRAM SODIUM DIET ordered. EDMS 15:08 ELECTROCARDIOGRAM ADULT ordered. EDMS 15:10 TROPONIN Ordered. EDMS 15:22 Admission / Observation Status ordered. EDMS 15:33 Written Provider Order was scanned into eblizz and attached to record. lbd 15:35 MAGNESIUM LEVEL Ordered. EDMS 16:05 NS 0.9% 1000 ml IV at 100 mL/hr once; per order of hospitalist ordered. ms2 19:30 CARDIAC MARKER PANEL Ordered. EDMS 19:31 COMPLETE BLOOD COUNT Ordered. EDMS 19:31 COMPLETE COMPHRENSIVE METABOLI Ordered. EDMS 0107 09:03 T-Sheet-- Draft Copy was scanned into eblizz and attached to record. gb 09:04 Trend VS was scanned into eblizz and attached to record. gb Administered Medications: 02/17 15:46 Drug: NS 0.9% 1000 ml [sodium chloride 0.9 % intravenous solution] Route: IV; Rate: 100 ms2 mL/hr; Site: left antecubital; Signatures: Dispatcher Med[employer] EDNE Kailyn Jj, Campus Administrative Assistant Unit lbd Jonatan Can RN RN ms2 Yessi Oleary, Reg Reg gb César Laureano, Campus Administrative Assistant Unit ml3 Sebastien Best MD MD br1 Kodak Cano, ENVELOPE PRESS OPERATOR ENVELOPE PRESS OPERATOR jrd Neri Trejo, Reg Reg pm4 The chart was reviewed and I authenticate all verbal orders and agree with the evaluation and treatment provided.Corrections: (The following items were deleted from the chart) 11:59 11:43 Home Meds: glyburide 5 mg Oral tab 1 tab 2 times per day (Last Dose: 02/18/2016 ms2 07:00); ms2 15:24 15:22 MAGNESIUM LEVEL ordered. EDMS EDMS 15:34 15:24 MAGNESIUM LEVEL ordered. EDMS EDMS 18:28 15:08 ECHOCARD,DOPPLER/COLOR FLOW ordered. EDMS EDMS Attachments: 12:53 [facility] Payment Agreement pm4 15:33 Written Provider Order lbd 02/18 09:03 T-Sheet-- Draft Copy gb Chart Complete MTDD
== END 2016-02-19 11:19 | disposition home or self-care (01) ==
LOC: M ED 11:31 → M ED INP 15:19 → M PCU 19:51
PROVIDERS: ADMIT Hospitalist; ATTEND Internal Medicine
DX: R07.89 Other chest pain (principal); R42 Dizziness and giddiness; N17.9 Acute kidney failure, unspecified; E11.9 Type 2 diabetes mellitus without complications; J44.9 Chronic obstructive pulmonary disease, unspecified; I10 Essential (primary) hypertension; F32.9 Major depressive disorder, single episode, unspecified; I49.3 Ventricular premature depolarization; Z79.899 Other long term (current) drug therapy; Z79.82 Long term (current) use of aspirin; Z88.8 Allergy status to other drugs, medicaments and biological substances; F17.210 Nicotine dependence, cigarettes, uncomplicated

== ENCOUNTER → 2018-01-10 | Outpatient (REF) | payer OTHER ==
[2018-01-10 17:35] LABS: FERRITIN 31 NG/ML (26-388); IRON (FE) 71 UG/DL (65-175); PERCENT SATURATION 19.7 % (19.7-50.0); TOTAL IRON BINDING CAPACITY 361 UG/DL (250-450)
== END ==
LOC: M LAB REF 16:55
DX: D50.9 Iron deficiency anemia, unspecified (principal)
CPT/HCPCS: 83550

== ENCOUNTER → 2018-12-09 | Outpatient (CLI) | payer MEDICARE, OTHER ==
[~2018-12-09] MED LIST: ASPI81TA26 PO; ATEN50TA2 PO; DRIS50003 PO; FOLI1TAB11 PO; FURO20TA2 PO; FURO40TA2 PO; GLYB5TA PO; LOVA40TA PO; METF10004 PO; OMEP40CA97 PO; SITA50TAB PO; SPIR-10 PO
--- NOTE | 2018-12-09 10:58 | REP ---
Clinical: Lung screening. History smoking. Comparison: None Technique: Axial low-dose noncontrast images from the thoracic inlet to the upper abdomen using lung screening technique. Findings: The lung franco demonstrate scattered chronic-appearing interstitial changes. Early subpleural fibrosis (right greater than left) is suggested. There is a 2 mm noncalcified subpleural nodule along the anterior right upper lobe (image 35) as well as 7 mm noncalcified nodular density in the deep right posterolateral sulcus (image 79). No pleural effusion/reaction or pneumothorax. Tracheobronchial tree is patent. Mediastinum demonstrates mild atherosclerotic changes of the coronary arteries without cardiomegaly. Impression: Lung-RADS category IV-A. 3-month follow-up examination and/or PET-CT are recommended for further investigation. Electronically Signed by Indra Richard MD 12/09/2018 10:50 A
== END ==
LOC: M RAD 09:45
PROVIDERS: ATTEND Family Medicine
DX: Z12.2 Encounter for screening for malignant neoplasm of respiratory organs (principal); F17.210 Nicotine dependence, cigarettes, uncomplicated

== ENCOUNTER → 2019-01-08 | Outpatient (CLI) | payer MEDICARE ==
--- NOTE | 2019-01-08 14:00 | REP ---
PET/CT: HISTORY: Diagnosing solitary pulmonary nodule. COMPARISONS: Comparison CT study of the chest is from December 09, 2018. TECHNIQUE: 57 minutes following the intravenous injection of a 8.42 mCi dose of F-18 FDG, three-dimensional PET scintigraphy is acquired from the skull base to the proximal thighs. Triplanar noncontrast CT scanning is acquired through the same anatomic range for attenuation correction, and image registration with scan parameters optimized to minimize radiation exposure to the patient. PET scintigraphy and CT datasets were fused and displayed on a workstation with multiplanar and projection display capability. PET/CT FINDINGS: The recently identified right lower lobe pulmonary nodule in the right lateral lung sulcus does not show hypermetabolic uptake. Maximum standard uptake value within it is 1.9. Superiorly adjacent to this, there is some interstitial fibrosis pattern in the lung parenchyma as seen on the December 09, 2018 study. Mild non-hypermetabolic uptake is seen within this interstitial pattern as well. Maximum standard uptake value up to 2.57 cm. This does not correspond with a nodule. This it is most consistent with chronic interstitial fibrosis. No other abnormal hypermetabolic uptake is seen within the chest. There is a solitary normal-sized hypermetabolic lymph node in the left anterior neck. Maximum standard uptake value in this lymph node is 4.64. This is mildly increased. This suggests reactive inflammatory changes. In the abdomen and pelvis, there is normal distribution of tracer. No abnormal hypermetabolic uptake is seen in the abdomen or pelvis. IMPRESSION: The pulmonary nodule identified in the right lower lobe lateral lung sulcus does not show hypermetabolic uptake. Interval followup chest CT is recommended. Electronically Signed by Owen Astudillo MD 01/08/2019 02:28 P
== END ==
LOC: M PLARAD 08:28
PROVIDERS: ATTEND Family Medicine
DX: R91.1 Solitary pulmonary nodule (principal)
CPT/HCPCS: 78815; A9552

== ENCOUNTER → 2020-10-08 | Outpatient (CLI) | payer OTHER ==
[~2020-10-08] MED LIST changes: -GLYB5TA PO; +GLYB5TAB6 PO; +ISOVUE-370 76% 100ML VIAL As Ordered ONE; +OMEP40CA4 PO; -OMEP40CA97 PO
== END ==
LOC: M RAD 10:07
PROVIDERS: ATTEND Family Medicine
DX: R91.1 Solitary pulmonary nodule (principal)
CPT/HCPCS: 71260; Q9967

== ENCOUNTER → 2021-10-12 | Outpatient (CLI) | payer MEDICARE, OTHER, SELFPAY | LOC: M RAD 12:28 | PROVIDERS: ATTEND Family Medicine | DX: R91.8 Other nonspecific abnormal finding of lung field (principal) | CPT/HCPCS: 71260; Q9967 ==

== ENCOUNTER → 2022-04-25 | Outpatient (CLI) | payer MEDICARE ==
[~2022-04-25] MED LIST changes: -ISOVUE-370 76% 100ML VIAL As Ordered ONE
== END ==
LOC: M PLAIMG 12:42
PROVIDERS: ATTEND Internal Medicine Pulmonary Disease
DX: R91.8 Other nonspecific abnormal finding of lung field (principal)

== ENCOUNTER 2022-07-08 12:59 | Inpatient (IN) | payer MEDICARE, OTHER ==
[2022-07-08] VITALS (9 sets, daily range): BP systolic 114–150; BP diastolic 55–70
[~2022-07-08] VITALS: Ht 177.8 cm; Wt 123.0 kg
[2022-07-08] MEDS ORDERED: MORPHINE 4 MG/ML 1ML VIAL IV ONE (13:40)
[2022-07-08] MEDS ORDERED: PANTOPRAZOLE 40MG VIAL IV ONE (13:45)
[2022-07-08 13:48] LABS: BASO % 0.3 % (0.0-1.0); EOS # 0.1 10^3/uL (0.0-0.5); EOS % 0.9 % (0.0-3.0); LYMPH # 1.1 10^3/uL (1.5-5.0); LYMPH % 11.8 % (24.0-44.0); MEAN CORPUSCULAR HEMOGLOBIN 26.8 pg (27.0-33.0); MEAN CORPUSCULAR HGB CONC 30.8 g/dl (32.0-36.5); MONO # 0.8 10^3/uL (0.0-0.8); MONO % 8.1 % (2.0-8.0); NEUTROPHILS # 7.3 10^3/uL (1.5-8.5); NEUTROPHILS % 77.7 % (36.0-66.0); PLATELET COUNT, AUTOMATED 203 10^3/uL (150-450); RED BLOOD COUNT 2.31 10^6/uL (4.30-6.10); WHITE BLOOD COUNT 9.4 10^3/uL (4.0-10.0)
[2022-07-08 13:57] LABS: HEMATOCRIT 20.1 % (42.0-52.0); HEMOGLOBIN 6.2 g/dl (13.5-17.5)
[2022-07-08] MEDS: NS 1,000 ML IV SCH ×2 (14:02→22:58)
[2022-07-08 14:03] LABS: INR 1.18; PARTIAL THROMBOPLASTIN TIME 29.5 SECONDS (24.8-34.2); PROTHROMBIN TIME 15.3 SECONDS (12.5-14.5)
[2022-07-08 14:10] LABS: ALBUMIN 2.5 G/DL (3.2-5.2); BILIRUBIN,DIRECT 0.2 MG/DL (<0.4); BILIRUBIN,TOTAL 0.4 MG/DL (0.3-1.2); CREATININE FOR GFR 1.7 MG/DL (0.70-1.30); GLOMERULAR FILTRATION RATE 42.8 (>49); POTASSIUM SERUM 4.4 MMOL/L (3.5-5.1); TOTAL PROTEIN 5.3 G/DL (5.7-8.2)
[2022-07-08 14:19] LABS: RSV AMPLIFICATION NEGATIVE (NEGATIVE)
[2022-07-08] MEDS ORDERED: ISOVUE-370 76% 100ML VIAL As Ordered ONE (14:22)
[2022-07-08] MEDS ORDERED: ACETAMINOPHEN TAB 650MG DOSE (2X325MG) PO ONE ×2 (15:50→17:00)
[2022-07-08] MEDS ORDERED: GLUCOSE 4GM CHEW TABLET PO PRN (16:40)
[2022-07-08] MEDS ORDERED: DEXTROSE 50% 50ML SYRINGE IV PRN (16:40)
[2022-07-08] MEDS ORDERED: GLUCAGON INJ 1MG VIAL SC PRN (16:40)
[2022-07-08] MEDS ORDERED: NS 1,000 ML IV SCH ×2 (17:00)
[2022-07-08] MEDS ORDERED: GLIP10TA6 PO (17:06)
[2022-07-08] MEDS ORDERED: MUCI1TAB16 PO (17:06)
[2022-07-08] MEDS ORDERED: ATOR80TA59 PO (17:06)
[2022-07-08] MEDS ORDERED: LISI2.5T9 PO (17:06)
[2022-07-08] MEDS ORDERED: VITMTA PO (17:06)
[2022-07-08] MEDS ORDERED: VASC1CAP2 PO (17:06)
[2022-07-08] MEDS ORDERED: METO1TAB87 PO (17:06)
[2022-07-08] MEDS ORDERED: OMEP40CA5 PO (17:06)
[2022-07-08] MEDS ORDERED: BUDE10.7 INH (17:06)
[2022-07-08] MEDS ORDERED: RANO500T2 PO (17:06)
[2022-07-08] MEDS ORDERED: DULA3PEN SC (17:06)
[2022-07-08] MEDS ORDERED: TAMS1CAP17 PO (17:06)
[2022-07-08] MEDS ORDERED: JARD1TAB PO (17:06)
[2022-07-08] MEDS ORDERED: FAMO40TA3 PO (17:06)
[2022-07-08] MEDS ORDERED: ALBU8.5H INH (17:06)
[2022-07-08] MEDS ORDERED: HOME MED LIST COMPLETE! XX SCH (17:10)
[2022-07-08] MEDS ORDERED: ALBUTEROL 90 MCG/ACT 8GM HFA INHALER INH PRN (17:50)
[2022-07-08] MEDS ORDERED: guaiFENesin ER 600 MG TAB PO PRN (17:50)
[2022-07-08] MEDS: INSULIN LISPRO (NovoLOG) PER UNIT SC SCH ×2 (18:00→21:00)
[2022-07-08 18:07] LABS: BILIRUBIN,DIRECT 0.2 MG/DL (<0.4); BILIRUBIN,TOTAL 0.5 MG/DL (0.3-1.2)
[2022-07-08 18:41] LABS: HEMATOCRIT 20.3 % (42.0-52.0); HEMOGLOBIN 6.3 g/dl (13.5-17.5)
[2022-07-08] MEDS: SYMBICORT 80/4.5MCG INHALER 6GM INH SCH (19:53)
[2022-07-08] MEDS ORDERED: ACETAMINOPHEN TAB 650MG DOSE (2X325MG) PO PRN (21:00)
[2022-07-08] MEDS ORDERED: diphenhydrAMINE 50MG/ML VIAL IV ONE (21:00)
[2022-07-08] MEDS ORDERED: FAMOTIDINE 20MG/2ML VIAL IVP ONE (21:00)
[2022-07-08] MEDS: DOXYCYCLINE HYCLATE 100MG TABLET PO SCH (21:50)
[2022-07-08] MEDS: TAMSULOSIN 0.4 MG CAP PO SCH (21:50)
[2022-07-08] MEDS: ATORVASTATIN 20 MG TAB PO SCH (21:50)
[2022-07-08] MEDS: cefTRIAXone SOD 2 GM in D5W MINI-BAG PLUS 50 ML IV SCH (22:58)
[2022-07-08] MEDS: RANOLAZINE 500MG ER TAB PO SCH (23:14)
[2022-07-09] VITALS (19 sets, daily range): BP systolic 105–139; BP diastolic 50–63
[2022-07-09] MEDS ORDERED: ACETAMINOPHEN 1000MG 100ML IV BAG IV ONE
[2022-07-09 00:45] LABS: HEMOGLOBIN 5.7 g/dl (13.5-17.5)
[2022-07-09] MEDS: PANTOPRAZOLE 40MG VIAL IV SCH ×2 (02:59→14:10)
[2022-07-09 06:32] LABS: HEMATOCRIT 21.9 % (42.0-52.0); MEAN CORPUSCULAR HEMOGLOBIN 27.8 pg (27.0-33.0); MEAN CORPUSCULAR HGB CONC 31.5 g/dl (32.0-36.5); MEAN CORPUSCULAR VOLUME 88.3 fl (80.0-96.0); PLATELET COUNT, AUTOMATED 180 10^3/uL (150-450); RED BLOOD COUNT 2.48 10^6/uL (4.30-6.10); WHITE BLOOD COUNT 5.9 10^3/uL (4.0-10.0)
[2022-07-09 06:49] LABS: HEMOGLOBIN 6.9 g/dl (13.5-17.5)
[2022-07-09 07:13] LABS: CALCIUM LEVEL 6.5 MG/DL (8.3-10.6); CREATININE FOR GFR 1.29 MG/DL (0.70-1.30); GLOMERULAR FILTRATION RATE 58.8 (>49); POTASSIUM SERUM 3.5 MMOL/L (3.5-5.1)
[2022-07-09] MEDS: TIOTROPIUM INHALER/CAPSULE (SPIRIVA) INH SCH (07:26)
[2022-07-09] MEDS: SYMBICORT 80/4.5MCG INHALER 6GM INH SCH ×2 (07:26→19:52)
[2022-07-09] MEDS: INSULIN LISPRO (NovoLOG) PER UNIT SC SCH ×4 (07:30→21:00)
[2022-07-09 07:37] LABS: HEMATOCRIT 24.6 % (42.0-52.0)
[2022-07-09] MEDS: NS 1,000 ML IV SCH (08:40)
[2022-07-09] MEDS ORDERED: propofoL 200 MG/20 ML VIAL As Ordered ONE ×3 (09:04→09:55)
[2022-07-09] MEDS ORDERED: LIDOCAINE 2% 100MG/5ML SDV (FOR ANES.) As Ordered ONE (09:04)
[2022-07-09] MEDS ORDERED: CETACAINE SPRAY 5GM As Ordered ONE (09:06)
[2022-07-09] MEDS ORDERED: PHENYLephrine 500MCG 5ML (100MCG/ML) SYRINGE As Ordered ONE (09:34)
[2022-07-09] MEDS ORDERED: CETACAINE SPRAY 5GM TOP ONE (09:46)
[2022-07-09] MEDS ORDERED: GLUCAGON INJ 1MG VIAL As Ordered ONE (09:47)
[2022-07-09] MEDS ORDERED: GLUCAGON INJ 1MG VIAL IV ONE (09:50)
[2022-07-09] MEDS ORDERED: HYDROMORPHONE HCL 0.5 MG/ 0.5 ML SYRINGE IV PRN (10:00)
[2022-07-09] MEDS ORDERED: oxyCODONE 5MG TAB PO PRN (10:00)
[2022-07-09] MEDS ORDERED: ONDANSETRON 4MG 2ML VIAL IV PRN (10:00)
[2022-07-09] MEDS: MULTIVITAMINS/MINERALS THERAP 1 TAB PO SCH (11:02)
[2022-07-09] MEDS: FOLIC ACID 1MG TAB PO SCH (11:02)
[2022-07-09] MEDS: DOXYCYCLINE HYCLATE 100MG TABLET PO SCH ×2 (11:02→21:15)
[2022-07-09] MEDS: RANOLAZINE 500MG ER TAB PO SCH ×2 (12:23→21:15)
[2022-07-09] MEDS: ASCORBIC ACID 500 MG TAB PO SCH (14:10)
[2022-07-09 16:19] LABS: HEMATOCRIT 24.1 % (42.0-52.0); HEMOGLOBIN 7.8 g/dl (13.5-17.5)
[2022-07-09] MEDS ORDERED: FUROSEMIDE 40MG/4ML VIAL IV ONE (18:40)
[2022-07-09] MEDS: TAMSULOSIN 0.4 MG CAP PO SCH (21:14)
[2022-07-09] MEDS: ATORVASTATIN 20 MG TAB PO SCH (21:14)
[2022-07-09] MEDS: cefTRIAXone SOD 2 GM in D5W MINI-BAG PLUS 50 ML IV SCH (22:34)
[2022-07-10] VITALS (15 sets, daily range): BP systolic 106–139; BP diastolic 53–63
[2022-07-10 00:18] LABS: HEMATOCRIT 24.2 % (42.0-52.0); HEMOGLOBIN 7.8 g/dl (13.5-17.5)
[2022-07-10] MEDS: PANTOPRAZOLE 40MG VIAL IV SCH (02:48)
[2022-07-10 04:50] LABS: HEMATOCRIT 23.7 % (42.0-52.0); HEMOGLOBIN 7.7 g/dl (13.5-17.5); MEAN CORPUSCULAR HEMOGLOBIN 27.8 pg (27.0-33.0); MEAN CORPUSCULAR HGB CONC 32.5 g/dl (32.0-36.5); MEAN CORPUSCULAR VOLUME 85.6 fl (80.0-96.0); PLATELET COUNT, AUTOMATED 160 10^3/uL (150-450); RED BLOOD COUNT 2.77 10^6/uL (4.30-6.10); WHITE BLOOD COUNT 5.4 10^3/uL (4.0-10.0)
[2022-07-10 05:28] LABS: ALBUMIN 2.1 G/DL (3.2-5.2); ALKALINE PHOSPHATASE 51 U/L (46-116); ALT/SGPT 48 U/L (7.0-40); AST/SGOT 44 U/L (<34); BILIRUBIN,TOTAL 1.2 MG/DL (0.3-1.2); BLOOD UREA NITROGEN 32 MG/DL (9-23); CALCIUM LEVEL 7.4 MG/DL (8.3-10.6); CARBON DIOXIDE LEVEL 20 MMOL/L (20-31); CHLORIDE LEVEL 109 MMOL/L (98-107); CREATININE FOR GFR 1.24 MG/DL (0.70-1.30); GLOMERULAR FILTRATION RATE > 60.0 (>49); GLUCOSE, FASTING 125 MG/DL (74-106); POTASSIUM SERUM 3.9 MMOL/L (3.5-5.1); SODIUM LEVEL 139 MMOL/L (136-145); TOTAL PROTEIN 4.5 G/DL (5.7-8.2)
[2022-07-10] MEDS: TIOTROPIUM INHALER/CAPSULE (SPIRIVA) INH SCH (07:17)
[2022-07-10] MEDS: SYMBICORT 80/4.5MCG INHALER 6GM INH SCH ×2 (07:17→20:15)
[2022-07-10 08:08] LABS: HEMATOCRIT 25.2 % (42.0-52.0); HEMOGLOBIN 8.3 g/dl (13.5-17.5)
[2022-07-10] MEDS ORDERED: FUROSEMIDE 20MG/2ML VIAL IV ONE ×2 (08:25→17:00)
[2022-07-10] MEDS: MULTIVITAMINS/MINERALS THERAP 1 TAB PO SCH (09:13)
[2022-07-10] MEDS: RANOLAZINE 500MG ER TAB PO SCH ×2 (09:13→20:41)
[2022-07-10] MEDS: FOLIC ACID 1MG TAB PO SCH (09:13)
[2022-07-10] MEDS: ASCORBIC ACID 500 MG TAB PO SCH (09:13)
[2022-07-10] MEDS: INSULIN LISPRO (NovoLOG) PER UNIT SC SCH ×4 (09:13→20:40)
[2022-07-10] MEDS: DOXYCYCLINE HYCLATE 100MG TABLET PO SCH ×2 (09:14→20:41)
[2022-07-10] MEDS: SUCRALFATE 1 GM TAB PO SCH ×2 (10:37→20:41)
[2022-07-10] MEDS: OMEPRAZOLE 20MG CAP PO SCH (10:37)
[2022-07-10] MEDS ORDERED: DOXY100T PO (10:52)
[2022-07-10] MEDS ORDERED: SUCR1TA PO (10:52)
[2022-07-10] MEDS ORDERED: OMEP-173 PO (10:52)
[2022-07-10] MEDS ORDERED: AMOX500T2 PO (10:52)
[2022-07-10] MEDS ORDERED: ASCO50TA PO (10:52)
[2022-07-10 12:05] LABS: HEMATOCRIT 24.1 % (42.0-52.0)
[2022-07-10 20:22] LABS: HEMATOCRIT 27.2 % (42.0-52.0); HEMOGLOBIN 8.9 g/dl (13.5-17.5)
[2022-07-10] MEDS: ATORVASTATIN 20 MG TAB PO SCH (20:41)
[2022-07-10] MEDS: TAMSULOSIN 0.4 MG CAP PO SCH (20:41)
[2022-07-10] MEDS: cefTRIAXone SOD 2 GM in D5W MINI-BAG PLUS 50 ML IV SCH (20:41)
[2022-07-11] VITALS (16 sets, daily range): BP systolic 108–131; BP diastolic 51–67
[2022-07-11 04:08] LABS: HEMATOCRIT 23.2 % (42.0-52.0); HEMOGLOBIN 7.6 g/dl (13.5-17.5); MEAN CORPUSCULAR HEMOGLOBIN 28.6 pg (27.0-33.0); MEAN CORPUSCULAR HGB CONC 32.8 g/dl (32.0-36.5); MEAN CORPUSCULAR VOLUME 87.2 fl (80.0-96.0); PLATELET COUNT, AUTOMATED 168 10^3/uL (150-450); RED BLOOD COUNT 2.66 10^6/uL (4.30-6.10); WHITE BLOOD COUNT 5.2 10^3/uL (4.0-10.0)
[2022-07-11 04:37] LABS: BLOOD UREA NITROGEN 29 MG/DL (9-23); CALCIUM LEVEL 7.2 MG/DL (8.3-10.6); CARBON DIOXIDE LEVEL 23 MMOL/L (20-31); CHLORIDE LEVEL 107 MMOL/L (98-107); CREATININE FOR GFR 1.18 MG/DL (0.70-1.30); GLOMERULAR FILTRATION RATE > 60.0 (>49); GLUCOSE, FASTING 183 MG/DL (74-106); MAGNESIUM LEVEL 1.6 MG/DL (1.8-2.4); POTASSIUM SERUM 3.8 MMOL/L (3.5-5.1); SODIUM LEVEL 139 MMOL/L (136-145)
[2022-07-11] MEDS: MAG SULF 1GM/100ML (MAG RUN) 1 GM in IV 1 EA IV SCH ×2 (05:02→05:52)
[2022-07-11 06:04] LABS: HEMATOCRIT 23.6 % (42.0-52.0); HEMOGLOBIN 7.8 g/dl (13.5-17.5)
[2022-07-11] MEDS: SYMBICORT 80/4.5MCG INHALER 6GM INH SCH ×2 (07:25→20:00)
[2022-07-11] MEDS: TIOTROPIUM INHALER/CAPSULE (SPIRIVA) INH SCH (07:25)
[2022-07-11] MEDS: OMEPRAZOLE 20MG CAP PO SCH (08:40)
[2022-07-11] MEDS: MULTIVITAMINS/MINERALS THERAP 1 TAB PO SCH (08:40)
[2022-07-11] MEDS: FOLIC ACID 1MG TAB PO SCH (08:41)
[2022-07-11] MEDS: ASCORBIC ACID 500 MG TAB PO SCH (08:41)
[2022-07-11] MEDS: DOXYCYCLINE HYCLATE 100MG TABLET PO SCH ×2 (08:41→21:10)
[2022-07-11] MEDS: RANOLAZINE 500MG ER TAB PO SCH ×2 (08:41→21:09)
[2022-07-11] MEDS: SUCRALFATE 1 GM TAB PO SCH ×2 (08:41→21:10)
[2022-07-11] MEDS: INSULIN LISPRO (NovoLOG) PER UNIT SC SCH ×4 (08:45→21:00)
[2022-07-11] MEDS ORDERED: FUROSEMIDE 20 MG TAB PO ONE (17:00)
[2022-07-11 17:27] LABS: HEMATOCRIT 31.2 % (42.0-52.0)
[2022-07-11 17:34] LABS: HEMOGLOBIN 10.5 g/dl (13.5-17.5)
[2022-07-11 20:23] LABS: HEMATOCRIT 29.1 % (42.0-52.0); HEMOGLOBIN 9.6 g/dl (13.5-17.5)
[2022-07-11] MEDS: TAMSULOSIN 0.4 MG CAP PO SCH (21:10)
[2022-07-11] MEDS: ATORVASTATIN 20 MG TAB PO SCH (21:10)
[2022-07-11] MEDS: AUGMENTIN 500MG TAB PO SCH (21:10)
[2022-07-12 03:59] VITALS: BP 103/55
[2022-07-12 06:01] LABS: HEMOGLOBIN 8.5 g/dl (13.5-17.5); MEAN CORPUSCULAR HEMOGLOBIN 28.7 pg (27.0-33.0); MEAN CORPUSCULAR HGB CONC 32.7 g/dl (32.0-36.5); MEAN CORPUSCULAR VOLUME 87.8 fl (80.0-96.0); PLATELET COUNT, AUTOMATED 157 10^3/uL (150-450); RED BLOOD COUNT 2.96 10^6/uL (4.30-6.10); WHITE BLOOD COUNT 6.2 10^3/uL (4.0-10.0)
[2022-07-12] MEDS: AUGMENTIN 500MG TAB PO SCH ×2 (06:07→12:26)
[2022-07-12 06:16] LABS: BLOOD UREA NITROGEN 36 MG/DL (9-23); CALCIUM LEVEL 7.3 MG/DL (8.3-10.6); CARBON DIOXIDE LEVEL 24 MMOL/L (20-31); CHLORIDE LEVEL 107 MMOL/L (98-107); CREATININE FOR GFR 1.14 MG/DL (0.70-1.30); GLOMERULAR FILTRATION RATE > 60.0 (>49); GLUCOSE, FASTING 174 MG/DL (74-106); SODIUM LEVEL 137 MMOL/L (136-145)
[2022-07-12] MEDS: TIOTROPIUM INHALER/CAPSULE (SPIRIVA) INH SCH (08:04)
[2022-07-12] MEDS: SYMBICORT 80/4.5MCG INHALER 6GM INH SCH ×2 (08:05→19:22)
[2022-07-12 08:20] VITALS: BP 121/60
[2022-07-12] MEDS: ASCORBIC ACID 500 MG TAB PO SCH (08:34)
[2022-07-12] MEDS: DOXYCYCLINE HYCLATE 100MG TABLET PO SCH ×2 (08:34→20:24)
[2022-07-12] MEDS: INSULIN LISPRO (NovoLOG) PER UNIT SC SCH ×4 (08:34→20:24)
[2022-07-12] MEDS: FOLIC ACID 1MG TAB PO SCH (08:34)
[2022-07-12] MEDS: SUCRALFATE 1 GM TAB PO SCH ×2 (08:34→20:24)
[2022-07-12] MEDS: OMEPRAZOLE 20MG CAP PO SCH (08:34)
[2022-07-12] MEDS: MULTIVITAMINS/MINERALS THERAP 1 TAB PO SCH (08:34)
[2022-07-12 11:30] LABS: RED BLOOD COUNT 3.14 10^6/uL (4.30-6.10); WHITE BLOOD COUNT 6.2 10^3/uL (4.0-10.0)
[2022-07-12 11:31] LABS: BASO % 0.6 % (0.0-1.0); EOS # 0.1 10^3/uL (0.0-0.5); EOS % 2.1 % (0.0-3.0); LYMPH # 0.9 10^3/uL (1.5-5.0); LYMPH % 14.8 % (24.0-44.0); MEAN CORPUSCULAR HEMOGLOBIN 28.7 pg (27.0-33.0); MEAN CORPUSCULAR HGB CONC 32.1 g/dl (32.0-36.5); MEAN CORPUSCULAR VOLUME 89.2 fl (80.0-96.0); MONO # 0.4 10^3/uL (0.0-0.8); MONO % 7.1 % (2.0-8.0); NEUTROPHILS # 4.6 10^3/uL (1.5-8.5); NEUTROPHILS % 73.2 % (36.0-66.0); PLATELET COUNT, AUTOMATED 188 10^3/uL (150-450)
[2022-07-12] MEDS: RANOLAZINE 500MG ER TAB PO SCH ×2 (12:26→20:24)
[2022-07-12] MEDS ORDERED: GOLYTELY SOLN 4000 ML BTL PO ONE (14:00)
[2022-07-12 16:13] VITALS: BP 113/53
[2022-07-12 20:00] VITALS: BP 166/70
[2022-07-12] MEDS: ATORVASTATIN 20 MG TAB PO SCH (20:24)
[2022-07-12] MEDS: TAMSULOSIN 0.4 MG CAP PO SCH (20:24)
[2022-07-12 20:30] VITALS: BP 154/68
[2022-07-12 20:32] LABS: HEMATOCRIT 25.9 % (42.0-52.0); HEMOGLOBIN 8.4 g/dl (13.5-17.5)
[2022-07-12 21:50] VITALS: BP 142/50
[2022-07-13] VITALS (17 sets, daily range): BP systolic 108–157; BP diastolic 49–84
[2022-07-13 04:50] LABS: HEMATOCRIT 23.7 % (42.0-52.0); HEMOGLOBIN 7.5 g/dl (13.5-17.5); MEAN CORPUSCULAR HEMOGLOBIN 28.7 pg (27.0-33.0); MEAN CORPUSCULAR HGB CONC 31.6 g/dl (32.0-36.5); MEAN CORPUSCULAR VOLUME 90.8 fl (80.0-96.0); PLATELET COUNT, AUTOMATED 156 10^3/uL (150-450); RED BLOOD COUNT 2.61 10^6/uL (4.30-6.10); WHITE BLOOD COUNT 5.8 10^3/uL (4.0-10.0)
[2022-07-13 05:24] LABS: BLOOD UREA NITROGEN 20 MG/DL (9-23); CARBON DIOXIDE LEVEL 28 MMOL/L (20-31); CHLORIDE LEVEL 109 MMOL/L (98-107); CREATININE FOR GFR 0.98 MG/DL (0.70-1.30); GLOMERULAR FILTRATION RATE > 60.0 (>49); GLUCOSE, FASTING 154 MG/DL (74-106); SODIUM LEVEL 142 MMOL/L (136-145)
[2022-07-13] MEDS: SYMBICORT 80/4.5MCG INHALER 6GM INH SCH ×2 (07:17→20:00)
[2022-07-13] MEDS: TIOTROPIUM INHALER/CAPSULE (SPIRIVA) INH SCH (07:17)
[2022-07-13] MEDS: INSULIN LISPRO (NovoLOG) PER UNIT SC SCH ×4 (07:30→21:00)
[2022-07-13] MEDS: ASCORBIC ACID 500 MG TAB PO SCH (08:21)
[2022-07-13] MEDS: OMEPRAZOLE 20MG CAP PO SCH (08:21)
[2022-07-13] MEDS: SUCRALFATE 1 GM TAB PO SCH ×2 (08:21→21:21)
[2022-07-13] MEDS: FOLIC ACID 1MG TAB PO SCH (08:21)
[2022-07-13] MEDS: RANOLAZINE 500MG ER TAB PO SCH ×2 (08:21→21:21)
[2022-07-13] MEDS: MULTIVITAMINS/MINERALS THERAP 1 TAB PO SCH (08:21)
[2022-07-13] MEDS ORDERED: FUROSEMIDE 20MG/2ML VIAL IV ONE ×2 (13:00→21:00)
[2022-07-13] MEDS ORDERED: fentaNYL 100 MCG/2 ML INJECTION As Ordered ONE (15:02)
[2022-07-13 15:09] LABS: BODY FLUID CULTURE Not indicated. (.); LEGIONELLA ANTIGEN URINE Negative (Negative); ORGANISM ID Not indicated. (.); SPECIMEN SOURCE Urine (.); URINE STREP PNEUMONIAE ANTIGEN Negative (Negative)
[2022-07-13] MEDS ORDERED: PHENYLephrine 500MCG 5ML (100MCG/ML) SYRINGE As Ordered ONE (15:42)
[2022-07-13 17:27] LABS: HEMATOCRIT 28.3 % (42.0-52.0); HEMOGLOBIN 9.2 g/dl (13.5-17.5)
[2022-07-13 20:32] LABS: HEMATOCRIT 31.1 % (42.0-52.0); HEMOGLOBIN 10.1 g/dl (13.5-17.5); MEAN CORPUSCULAR HGB CONC 32.5 g/dl (32.0-36.5); MEAN CORPUSCULAR VOLUME 89.4 fl (80.0-96.0); PLATELET COUNT, AUTOMATED 187 10^3/uL (150-450); RED BLOOD COUNT 3.48 10^6/uL (4.30-6.10); WHITE BLOOD COUNT 7.8 10^3/uL (4.0-10.0)
[2022-07-13] MEDS: ATORVASTATIN 20 MG TAB PO SCH (21:21)
[2022-07-13] MEDS: TAMSULOSIN 0.4 MG CAP PO SCH (21:21)
[2022-07-14 00:24] LABS: HEMATOCRIT 29.2 % (42.0-52.0); HEMOGLOBIN 9.5 g/dl (13.5-17.5)
[2022-07-14 02:00] VITALS: BP 118/57
[2022-07-14 05:33] VITALS: BP 138/73
[2022-07-14 05:54] LABS: BASO % 0.6 % (0.0-1.0); EOS # 0.1 10^3/uL (0.0-0.5); EOS % 2.1 % (0.0-3.0); HEMATOCRIT 27.9 % (42.0-52.0); HEMOGLOBIN 8.9 g/dl (13.5-17.5); LYMPH % 18.6 % (24.0-44.0); MEAN CORPUSCULAR HEMOGLOBIN 28.6 pg (27.0-33.0); MEAN CORPUSCULAR HGB CONC 31.9 g/dl (32.0-36.5); MEAN CORPUSCULAR VOLUME 89.7 fl (80.0-96.0); MONO # 0.3 10^3/uL (0.0-0.8); MONO % 4.8 % (2.0-8.0); NEUTROPHILS # 3.8 10^3/uL (1.5-8.5); NEUTROPHILS % 72.9 % (36.0-66.0); PLATELET COUNT, AUTOMATED 180 10^3/uL (150-450); RED BLOOD COUNT 3.11 10^6/uL (4.30-6.10); WHITE BLOOD COUNT 5.2 10^3/uL (4.0-10.0)
[2022-07-14 06:18] LABS: BLOOD UREA NITROGEN 14 MG/DL (9-23); CALCIUM LEVEL 7.5 MG/DL (8.3-10.6); CARBON DIOXIDE LEVEL 28 MMOL/L (20-31); CHLORIDE LEVEL 107 MMOL/L (98-107); CREATININE FOR GFR 1.01 MG/DL (0.70-1.30); GLOMERULAR FILTRATION RATE > 60.0 (>49); GLUCOSE, FASTING 110 MG/DL (74-106); MAGNESIUM LEVEL 1.5 MG/DL (1.8-2.4); POTASSIUM SERUM 3.9 MMOL/L (3.5-5.1); SODIUM LEVEL 142 MMOL/L (136-145)
[2022-07-14] MEDS: SYMBICORT 80/4.5MCG INHALER 6GM INH SCH ×2 (07:59→19:30)
[2022-07-14] MEDS: TIOTROPIUM INHALER/CAPSULE (SPIRIVA) INH SCH (07:59)
[2022-07-14] MEDS: INSULIN LISPRO (NovoLOG) PER UNIT SC SCH ×4 (08:23→20:45)
[2022-07-14] MEDS: MULTIVITAMINS/MINERALS THERAP 1 TAB PO SCH (08:24)
[2022-07-14] MEDS: RANOLAZINE 500MG ER TAB PO SCH ×2 (08:24→20:55)
[2022-07-14] MEDS: ASCORBIC ACID 500 MG TAB PO SCH (08:24)
[2022-07-14] MEDS: OMEPRAZOLE 20MG CAP PO SCH (08:24)
[2022-07-14] MEDS: SUCRALFATE 1 GM TAB PO SCH ×2 (08:25→20:55)
[2022-07-14] MEDS: MAG SULF 1GM/100ML (MAG RUN) 1 GM in IV 1 EA IV SCH ×2 (08:25→09:40)
[2022-07-14] MEDS: FOLIC ACID 1MG TAB PO SCH (08:25)
[2022-07-14 10:00] VITALS: BP 140/68
[2022-07-14] MEDS ORDERED: FUROSEMIDE 40MG/4ML VIAL IV ONE (13:15)
[2022-07-14 13:49] VITALS: BP 130/62
[2022-07-14 14:00] VITALS: BP 142/68
[2022-07-14 14:12] LABS: HEMATOCRIT 27.5 % (42.0-52.0)
[2022-07-14] MEDS: TAMSULOSIN 0.4 MG CAP PO SCH (20:55)
[2022-07-14] MEDS: ATORVASTATIN 20 MG TAB PO SCH (20:55)
[2022-07-14 22:00] VITALS: BP 116/53
[2022-07-14 22:11] LABS: HEMATOCRIT 30.6 % (42.0-52.0); HEMOGLOBIN 9.9 g/dl (13.5-17.5)
[2022-07-15] VITALS (8 sets, daily range): BP systolic 113–158; BP diastolic 58–71
[2022-07-15 06:29] LABS: BASO % 0.8 % (0.0-1.0); EOS # 0.1 10^3/uL (0.0-0.5); EOS % 2.6 % (0.0-3.0); HEMATOCRIT 27.8 % (42.0-52.0); LYMPH # 0.9 10^3/uL (1.5-5.0); LYMPH % 23.3 % (24.0-44.0); MEAN CORPUSCULAR HEMOGLOBIN 29.5 pg (27.0-33.0); MEAN CORPUSCULAR HGB CONC 32.4 g/dl (32.0-36.5); MEAN CORPUSCULAR VOLUME 91.1 fl (80.0-96.0); MONO # 0.3 10^3/uL (0.0-0.8); MONO % 6.5 % (2.0-8.0); NEUTROPHILS # 2.6 10^3/uL (1.5-8.5); PLATELET COUNT, AUTOMATED 222 10^3/uL (150-450); RED BLOOD COUNT 3.05 10^6/uL (4.30-6.10); WHITE BLOOD COUNT 3.9 10^3/uL (4.0-10.0)
[2022-07-15 06:55] LABS: BLOOD UREA NITROGEN 11 MG/DL (9-23); CARBON DIOXIDE LEVEL 29 MMOL/L (20-31); CHLORIDE LEVEL 107 MMOL/L (98-107); CREATININE FOR GFR 1.06 MG/DL (0.70-1.30); GLOMERULAR FILTRATION RATE > 60.0 (>49); GLUCOSE, FASTING 117 MG/DL (74-106); MAGNESIUM LEVEL 1.9 MG/DL (1.8-2.4); SODIUM LEVEL 140 MMOL/L (136-145)
[2022-07-15] MEDS: SYMBICORT 80/4.5MCG INHALER 6GM INH SCH (08:00)
[2022-07-15] MEDS: TIOTROPIUM INHALER/CAPSULE (SPIRIVA) INH SCH (08:00)
[2022-07-15] MEDS: INSULIN LISPRO (NovoLOG) PER UNIT SC SCH ×3 (08:27→17:30)
[2022-07-15] MEDS: OMEPRAZOLE 20MG CAP PO SCH (08:29)
[2022-07-15] MEDS: ASCORBIC ACID 500 MG TAB PO SCH (08:30)
[2022-07-15] MEDS: MULTIVITAMINS/MINERALS THERAP 1 TAB PO SCH (08:30)
[2022-07-15] MEDS: FOLIC ACID 1MG TAB PO SCH (08:30)
[2022-07-15] MEDS: SUCRALFATE 1 GM TAB PO SCH (08:30)
[2022-07-15] MEDS: RANOLAZINE 500MG ER TAB PO SCH (08:30)
[2022-07-15] MEDS ORDERED: FUROSEMIDE 40MG/4ML VIAL IV SCH (09:00)
[2022-07-15] MEDS ORDERED: FURO20TA2 PO (11:42)
[2022-07-15 12:26] LABS: HEMATOCRIT 30.8 % (42.0-52.0); HEMOGLOBIN 9.9 g/dl (13.5-17.5)
== END 2022-07-15 17:45 | disposition home or self-care (01) | DRG 377 ==
LOC: M ED 12:59 → M ED INP 16:23 → ENRESERV 16:59 → M PCU 17:52 → M MSPAV 07-12 21:51
PROVIDERS: ADMIT Internal Medicine; ATTEND Internal Medicine
PROC: 30233N1 Transfusion of Nonautologous Red Blood Cells into Peripheral Vein, Percutaneous Approach (ICD-10-PCS; 2022-07-08)
PROC: 0W3P8ZZ Control Bleeding in Gastrointestinal Tract, Via Natural or Artificial Opening Endoscopic (ICD-10-PCS; principal; 2022-07-09 10:00)
PROC: 0DBH8ZX Excision of Cecum, Via Natural or Artificial Opening Endoscopic, Diagnostic (ICD-10-PCS; 2022-07-13)
PROC: 0DJ08ZZ Inspection of Upper Intestinal Tract, Via Natural or Artificial Opening Endoscopic (ICD-10-PCS; 2022-07-13)
DX: K31.811 Angiodysplasia of stomach and duodenum with bleeding (principal); J18.9 Pneumonia, unspecified organism; E87.20 Acidosis, unspecified; I24.8 Other forms of acute ischemic heart disease; N17.9 Acute kidney failure, unspecified; D62 Acute posthemorrhagic anemia; J44.0 Chronic obstructive pulmonary disease with (acute) lower respiratory infection; K63.3 Ulcer of intestine; C18.0 Malignant neoplasm of cecum; I10 Essential (primary) hypertension; E78.5 Hyperlipidemia, unspecified; E11.9 Type 2 diabetes mellitus without complications; K21.9 Gastro-esophageal reflux disease without esophagitis; N40.0 Benign prostatic hyperplasia without lower urinary tract symptoms; F17.210 Nicotine dependence, cigarettes, uncomplicated; Z88.8 Allergy status to other drugs, medicaments and biological substances; I25.10 Atherosclerotic heart disease of native coronary artery without angina pectoris; Z95.1 Presence of aortocoronary bypass graft; J44.9 Chronic obstructive pulmonary disease, unspecified; Z79.899 Other long term (current) drug therapy; K55.20 Angiodysplasia of colon without hemorrhage; R16.0 Hepatomegaly, not elsewhere classified; Z98.84 Bariatric surgery status; R74.01 Elevation of levels of liver transaminase levels; Z79.82 Long term (current) use of aspirin; Z79.84 Long term (current) use of oral hypoglycemic drugs

== ENCOUNTER 2022-09-04 06:04 | Inpatient (IN) | payer MEDICARE ==
[~2022-09-04] VITALS: Ht 177.8 cm; Wt 116.6 kg
[2022-09-04] VITALS (7 sets, daily range): BP systolic 108–165; BP diastolic 47–85; TEMP 97.7–98.1; O2SAT 90–97
[~2022-09-04 06:04] MED LIST changes: +ALBU8.5H INH; +AMOX500T2 PO; +ASCO50TA PO; +ATOR80TA59 PO; +BUDE10.7 INH; +DOXY100C3 PO; +DOXY100T PO; +DULA3PEN SC; +FAMO40TA3 PO; +FERR325T3 PO; +GLIP10TA6 PO; +JARD1TAB PO; +LISI2.5T9 PO; +METO1TAB87 PO; +MUCI1TAB16 PO; +OMEP-173 PO; +OMEP40CA5 PO; +RANO500T2 PO; +SUCR1TA PO; +TAMS1CAP17 PO; +VASC1CAP2 PO; +VITA500C24 PO; +VITMTA PO; +cefoTEtan DISODIUM 2 GM in D5W MINI-BAG PLUS 50 ML IV ONE
[2022-09-04] MEDS ORDERED: LR 1,000 ML IV SCH ×2 (07:30→10:05)
[2022-09-04] MEDS ORDERED: fentaNYL 250 MCG/5 ML INJECTION As Ordered ONE (08:25)
[2022-09-04] MEDS ORDERED: DESFLURANE 240 ML INHALANT As Ordered ONE (08:25)
[2022-09-04] MEDS ORDERED: SEVOFLURANE INHAL SOLN 250 ML BTL As Ordered ONE (08:25)
[2022-09-04] MEDS ORDERED: KETOROLAC 60MG 2ML VIAL As Ordered ONE (08:25)
[2022-09-04] MEDS ORDERED: HYDROmorphone HCL 2MG/ML 1ML VIAL As Ordered ONE (08:25)
[2022-09-04] MEDS ORDERED: ONDANSETRON 4MG 2ML VIAL As Ordered ONE (08:25)
[2022-09-04] MEDS ORDERED: propofoL 200 MG/20 ML VIAL As Ordered ONE (08:25)
[2022-09-04] MEDS ORDERED: METOCLOPRAMIDE INJ 10MG/2ML VIAL As Ordered ONE (08:25)
[2022-09-04] MEDS ORDERED: SUGAMMADEX SODIUM 500 MG/5 ML VIAL (BRIDION) As Ordered ONE (08:25)
[2022-09-04] MEDS ORDERED: LIDOCAINE 2% 100MG/5ML SDV (FOR ANES.) As Ordered ONE (08:25)
[2022-09-04] MEDS ORDERED: ROCURONIUM BROMIDE 50MG/5ML VIAL As Ordered ONE (08:25)
[2022-09-04] MEDS ORDERED: ePHEDrine SULFATE 25 MG/5 ML(5MG/ML) SYRINGE As Ordered ONE (08:25)
[2022-09-04] MEDS ORDERED: MIDAZOLAM INJ 2MG/2ML VIAL As Ordered ONE (08:25)
[2022-09-04] MEDS ORDERED: HYDROMORPHONE HCL 0.5 MG/ 0.5 ML SYRINGE IV PRN (10:05)
[2022-09-04] MEDS ORDERED: ONDANSETRON 4MG 2ML VIAL IV PRN ×2 (10:05→15:30)
[2022-09-04] MEDS ORDERED: oxyCODONE 5MG TAB PO PRN (10:05)
[2022-09-04] MEDS: fentaNYL 100 MCG/2 ML INJECTION IV PRN ×4 (10:32→11:04)
[2022-09-04] MEDS ORDERED: ALBUTEROL 90 MCG/ACT 8GM HFA INHALER INH PRN (10:50)
[2022-09-04] MEDS ORDERED: ACETAMINOPHEN 1000MG 100ML IV BAG As Ordered ONE (10:58)
[2022-09-04] MEDS ORDERED: LR 1,000 ML IV ONE (11:55)
[2022-09-04] MEDS ORDERED: GLUCAGON INJ 1MG VIAL SC PRN (15:35)
[2022-09-04] MEDS ORDERED: GLUCOSE 4GM CHEW TABLET PO PRN (15:35)
[2022-09-04] MEDS ORDERED: DEXTROSE 50% 50ML SYRINGE IV PRN (15:35)
[2022-09-04] MEDS: NS 1,000 ML IV SCH ×2 (16:56→20:26)
[2022-09-04] MEDS: INSULIN LISPRO (NovoLOG) PER UNIT SC SCH (17:21)
[2022-09-04] MEDS ORDERED: NITR0.4S14 SL (17:40)
[2022-09-04] MEDS ORDERED: HOME MED LIST COMPLETE! XX SCH (18:05)
[2022-09-04] MEDS: KETOROLAC 30 MG/ML 1ML VIAL IV PRN (20:26)
[2022-09-04] MEDS: ATORVASTATIN 20 MG TAB PO SCH (20:27)
[2022-09-04] MEDS: RANOLAZINE 500MG ER TAB PO SCH (20:27)
[2022-09-04] MEDS: SUCRALFATE 1 GM TAB PO SCH (20:27)
[2022-09-04] MEDS: SENOKOT S TAB PO SCH (20:28)
[2022-09-04] MEDS ORDERED: METOPROLOL TART 25 MG TABLET PO SCH (21:00)
[2022-09-04] MEDS ORDERED: LISINOPRIL *2.5 MG* TAB PO SCH (21:00)
[2022-09-04] MEDS: SYMBICORT 160/4.5MCG INHALER 6GM INH SCH (21:08)
[2022-09-05 03:15] VITALS: BP 95/56; TEMP 97.7; O2SAT 94
[2022-09-05 06:29] LABS: HEMATOCRIT 32.7 % (42.0-52.0); HEMOGLOBIN 10.5 g/dl (13.5-17.5); MEAN CORPUSCULAR HEMOGLOBIN 28.2 pg (27.0-33.0); MEAN CORPUSCULAR HGB CONC 32.1 g/dl (32.0-36.5); MEAN CORPUSCULAR VOLUME 87.9 fl (80.0-96.0); PLATELET COUNT, AUTOMATED 172 10^3/uL (150-450); RED BLOOD COUNT 3.72 10^6/uL (4.30-6.10); WHITE BLOOD COUNT 6.9 10^3/uL (4.0-10.0)
[2022-09-05 06:57] LABS: BLOOD UREA NITROGEN 17 MG/DL (9-23); CALCIUM LEVEL 8.1 MG/DL (8.3-10.6); CARBON DIOXIDE LEVEL 24 MMOL/L (20-31); CHLORIDE LEVEL 108 MMOL/L (98-107); GLOMERULAR FILTRATION RATE > 60.0 (>49); GLUCOSE, FASTING 121 MG/DL (74-106); POTASSIUM SERUM 4.3 MMOL/L (3.5-5.1); SODIUM LEVEL 140 MMOL/L (136-145)
[2022-09-05] MEDS: INSULIN LISPRO (NovoLOG) PER UNIT SC SCH ×3 (07:30→17:19)
[2022-09-05] MEDS: SYMBICORT 160/4.5MCG INHALER 6GM INH SCH ×2 (07:40→20:16)
[2022-09-05] MEDS: TIOTROPIUM INHALER/CAPSULE (SPIRIVA) INH SCH (07:40)
[2022-09-05] MEDS: SUCRALFATE 1 GM TAB PO SCH ×2 (08:42→20:11)
[2022-09-05] MEDS: TAMSULOSIN 0.4 MG CAP PO SCH (08:42)
[2022-09-05] MEDS: NS 1,000 ML IV SCH (08:42)
[2022-09-05] MEDS: RANOLAZINE 500MG ER TAB PO SCH ×2 (08:42→20:10)
[2022-09-05] MEDS: ENOXAPARIN 40MG/0.4ML SYRINGE (J1650 PER 10MG) SC SCH (08:43)
[2022-09-05] MEDS: OMEPRAZOLE 20MG CAP PO SCH (08:43)
[2022-09-05] MEDS: FAMOTIDINE 20 MG TAB PO SCH (08:43)
[2022-09-05] MEDS: SENOKOT S TAB PO SCH ×2 (08:43→20:11)
[2022-09-05] MEDS: FERROUS SULFATE 325MG TAB PO SCH (08:43)
[2022-09-05] MEDS: METOPROLOL TART 12.5 MG PER 1/2 TAB PO SCH ×2 (08:44→20:11)
[2022-09-05] MEDS ORDERED: FUROSEMIDE 20 MG TAB PO SCH (09:00)
[2022-09-05 10:00] VITALS: BP 111/58; TEMP 98.1; O2SAT 100
[2022-09-05 14:00] VITALS: BP 131/54; TEMP 98.6; O2SAT 97
[2022-09-05 20:00] VITALS: BP 145/62; TEMP 98.6; O2SAT 99
[2022-09-05] MEDS: ATORVASTATIN 20 MG TAB PO SCH (20:10)
[2022-09-06 04:00] VITALS: BP 151/63; TEMP 98.2; O2SAT 98
[2022-09-06] MEDS: NORCO, ANEXSIA 5/325MG TABLET (HYDROcodone/ACETAMINOPHEN) PO PRN ×2 (04:48→10:58)
[2022-09-06 05:53] LABS: HEMATOCRIT 35.4 % (42.0-52.0); HEMOGLOBIN 11.2 g/dl (13.5-17.5); MEAN CORPUSCULAR HEMOGLOBIN 28.1 pg (27.0-33.0); MEAN CORPUSCULAR HGB CONC 31.6 g/dl (32.0-36.5); MEAN CORPUSCULAR VOLUME 88.9 fl (80.0-96.0); PLATELET COUNT, AUTOMATED 176 10^3/uL (150-450); RED BLOOD COUNT 3.98 10^6/uL (4.30-6.10); WHITE BLOOD COUNT 5.8 10^3/uL (4.0-10.0)
[2022-09-06 06:09] LABS: BLOOD UREA NITROGEN 11 MG/DL (9-23); CALCIUM LEVEL 8.6 MG/DL (8.3-10.6); CARBON DIOXIDE LEVEL 25 MMOL/L (20-31); CHLORIDE LEVEL 106 MMOL/L (98-107); CREATININE FOR GFR 1.08 MG/DL (0.70-1.30); GLOMERULAR FILTRATION RATE > 60.0 (>49); GLUCOSE, FASTING 123 MG/DL (74-106); SODIUM LEVEL 140 MMOL/L (136-145)
[2022-09-06] MEDS: INSULIN LISPRO (NovoLOG) PER UNIT SC SCH ×3 (07:19→17:58)
[2022-09-06] MEDS: SYMBICORT 160/4.5MCG INHALER 6GM INH SCH ×2 (07:36→20:00)
[2022-09-06] MEDS: TIOTROPIUM INHALER/CAPSULE (SPIRIVA) INH SCH (07:36)
[2022-09-06] MEDS: FERROUS SULFATE 325MG TAB PO SCH (08:53)
[2022-09-06] MEDS: SENOKOT S TAB PO SCH ×2 (08:53→21:43)
[2022-09-06] MEDS: FAMOTIDINE 20 MG TAB PO SCH (08:53)
[2022-09-06] MEDS: FUROSEMIDE 20 MG TAB PO SCH (08:53)
[2022-09-06] MEDS: TAMSULOSIN 0.4 MG CAP PO SCH (08:53)
[2022-09-06] MEDS: RANOLAZINE 500MG ER TAB PO SCH ×2 (08:53→21:43)
[2022-09-06] MEDS: ENOXAPARIN 40MG/0.4ML SYRINGE (J1650 PER 10MG) SC SCH (08:53)
[2022-09-06] MEDS: OMEPRAZOLE 20MG CAP PO SCH (08:53)
[2022-09-06] MEDS: SUCRALFATE 1 GM TAB PO SCH ×2 (08:53→21:43)
[2022-09-06] MEDS: METOPROLOL TART 12.5 MG PER 1/2 TAB PO SCH ×2 (08:54→21:43)
[2022-09-06] MEDS ORDERED: METOPROLOL TART 12.5 MG PER 1/2 TAB PO SCH (09:00)
[2022-09-06] MEDS: KETOROLAC 30 MG/ML 1ML VIAL IV PRN ×2 (12:21→22:39)
[2022-09-06 14:00] VITALS: BP 109/48; TEMP 97.9; O2SAT 97
[2022-09-06 20:00] VITALS: BP 144/57; TEMP 98.1; O2SAT 97
[2022-09-06] MEDS ORDERED: LISINOPRIL *2.5 MG* TAB PO SCH (21:00)
[2022-09-06] MEDS: ATORVASTATIN 20 MG TAB PO SCH (21:44)
[2022-09-07 05:55] LABS: HEMATOCRIT 34.6 % (42.0-52.0); HEMOGLOBIN 11.1 g/dl (13.5-17.5); MEAN CORPUSCULAR HEMOGLOBIN 28.5 pg (27.0-33.0); MEAN CORPUSCULAR HGB CONC 32.1 g/dl (32.0-36.5); MEAN CORPUSCULAR VOLUME 88.9 fl (80.0-96.0); PLATELET COUNT, AUTOMATED 176 10^3/uL (150-450); RED BLOOD COUNT 3.89 10^6/uL (4.30-6.10)
[2022-09-07 06:00] VITALS: BP 140/52; TEMP 97.9; O2SAT 96
[2022-09-07 06:29] LABS: BLOOD UREA NITROGEN 16 MG/DL (9-23); CALCIUM LEVEL 8.6 MG/DL (8.3-10.6); CARBON DIOXIDE LEVEL 25 MMOL/L (20-31); CHLORIDE LEVEL 108 MMOL/L (98-107); CREATININE FOR GFR 1.14 MG/DL (0.70-1.30); GLOMERULAR FILTRATION RATE > 60.0 (>49); GLUCOSE, FASTING 154 MG/DL (74-106); POTASSIUM SERUM 3.9 MMOL/L (3.5-5.1); SODIUM LEVEL 142 MMOL/L (136-145)
[2022-09-07] MEDS: SYMBICORT 160/4.5MCG INHALER 6GM INH SCH (07:12)
[2022-09-07] MEDS: TIOTROPIUM INHALER/CAPSULE (SPIRIVA) INH SCH (07:12)
[2022-09-07] MEDS: ENOXAPARIN 40MG/0.4ML SYRINGE (J1650 PER 10MG) SC SCH (07:46)
[2022-09-07] MEDS: SENOKOT S TAB PO SCH (07:46)
[2022-09-07] MEDS: INSULIN LISPRO (NovoLOG) PER UNIT SC SCH (07:46)
[2022-09-07] MEDS: FERROUS SULFATE 325MG TAB PO SCH (07:47)
[2022-09-07] MEDS: OMEPRAZOLE 20MG CAP PO SCH (07:47)
[2022-09-07] MEDS: FUROSEMIDE 20 MG TAB PO SCH (07:47)
[2022-09-07 07:48] VITALS: BP 133/59
[2022-09-07] MEDS: FAMOTIDINE 20 MG TAB PO SCH (07:48)
[2022-09-07] MEDS: SUCRALFATE 1 GM TAB PO SCH (07:48)
[2022-09-07] MEDS: TAMSULOSIN 0.4 MG CAP PO SCH (07:48)
[2022-09-07] MEDS: METOPROLOL TART 12.5 MG PER 1/2 TAB PO SCH (07:48)
[2022-09-07] MEDS: RANOLAZINE 500MG ER TAB PO SCH (07:48)
[2022-09-07] MEDS: NORCO, ANEXSIA 5/325MG TABLET (HYDROcodone/ACETAMINOPHEN) PO PRN (07:54)
[2022-09-07] MEDS ORDERED: HYDR-3715 PO (10:45)
== END 2022-09-07 10:45 | disposition home or self-care (01) | DRG 331 ==
LOC: M OR 06:04 → M MSPAV 14:08
PROVIDERS: ADMIT Surgery; ATTEND Surgery
PROC: 8E0W4CZ Robotic Assisted Procedure of Trunk Region, Percutaneous Endoscopic Approach (ICD-10-PCS; 2022-09-04)
PROC: 0DBF4ZZ Excision of Right Large Intestine, Percutaneous Endoscopic Approach (ICD-10-PCS; principal; 2022-09-04 07:30)
DX: K63.89 Other specified diseases of intestine (principal); I10 Essential (primary) hypertension; E78.5 Hyperlipidemia, unspecified; I95.9 Hypotension, unspecified; J44.9 Chronic obstructive pulmonary disease, unspecified; E11.9 Type 2 diabetes mellitus without complications; K21.9 Gastro-esophageal reflux disease without esophagitis; F17.200 Nicotine dependence, unspecified, uncomplicated; D50.0 Iron deficiency anemia secondary to blood loss (chronic); I25.10 Atherosclerotic heart disease of native coronary artery without angina pectoris; N40.0 Benign prostatic hyperplasia without lower urinary tract symptoms; Z95.1 Presence of aortocoronary bypass graft; Z79.84 Long term (current) use of oral hypoglycemic drugs; Z79.899 Other long term (current) drug therapy

== ENCOUNTER 2022-10-09 18:30 | Observation (INO) | payer MEDICARE, MEDICAID ==
[~2022-10-09] VITALS: Ht 177.8 cm; Wt 118.8 kg
[2022-10-09] VITALS (8 sets, daily range): BP systolic 114–154; BP diastolic 56–84; TEMP 96.8–98.8; O2SAT 98–99
[~2022-10-09 18:30] MED LIST changes: +HYDR-3715 PO; +NITR0.4S14 SL; -cefoTEtan DISODIUM 2 GM in D5W MINI-BAG PLUS 50 ML IV ONE
[2022-10-09 19:32] LABS: BASO # 0.1 10^3/uL (0.0-0.2); EOS # 0.1 10^3/uL (0.0-0.5); EOS % 1.8 % (0.0-3.0); HEMATOCRIT 26.2 % (42.0-52.0); HEMOGLOBIN 8.1 g/dl (13.5-17.5); LYMPH # 1.1 10^3/uL (1.5-5.0); LYMPH % 18.1 % (24.0-44.0); MEAN CORPUSCULAR HEMOGLOBIN 27.4 pg (27.0-33.0); MEAN CORPUSCULAR HGB CONC 30.9 g/dl (32.0-36.5); MEAN CORPUSCULAR VOLUME 88.5 fl (80.0-96.0); MONO # 0.5 10^3/uL (0.0-0.8); MONO % 7.2 % (2.0-8.0); NEUTROPHILS # 4.4 10^3/uL (1.5-8.5); NEUTROPHILS % 71.1 % (36.0-66.0); PLATELET COUNT, AUTOMATED 168 10^3/uL (150-450); RED BLOOD COUNT 2.96 10^6/uL (4.30-6.10); WHITE BLOOD COUNT 6.2 10^3/uL (4.0-10.0)
[2022-10-09] MEDS ORDERED: PANTOPRAZOLE 40MG VIAL IV ONE (19:45)
[2022-10-09] MEDS ORDERED: PANTOPRAZOLE SODIUM 40 MG in D5W 50 ML IV SCH (19:45)
[2022-10-09] MEDS: NS 1,000 ML IV SCH (19:50)
[2022-10-09 20:02] LABS: BLOOD UREA NITROGEN 33 MG/DL (9-23); CALCIUM LEVEL 8.9 MG/DL (8.3-10.6); CARBON DIOXIDE LEVEL 24 MMOL/L (20-31); CHLORIDE LEVEL 109 MMOL/L (98-107); GLOMERULAR FILTRATION RATE > 60.0 (>49); GLUCOSE, FASTING 135 MG/DL (74-106); POTASSIUM SERUM 4.4 MMOL/L (3.5-5.1); SODIUM LEVEL 140 MMOL/L (136-145)
[2022-10-09] MEDS: INSULIN LISPRO (NovoLOG) PER UNIT SC SCH (21:00)
[2022-10-09] MEDS ORDERED: METO1TAB87 PO (22:12)
[2022-10-09] MEDS ORDERED: FOLI1TAB11 PO (22:12)
[2022-10-09] MEDS ORDERED: GLUCAGON INJ 1MG VIAL SC PRN (22:15)
[2022-10-09] MEDS ORDERED: GLUCOSE 4GM CHEW TABLET PO PRN (22:15)
[2022-10-09] MEDS ORDERED: C-101TAB3 PO (22:15)
[2022-10-09] MEDS ORDERED: DEXTROSE 50% 50ML SYRINGE IV PRN (22:15)
[2022-10-09] MEDS ORDERED: HOME MED LIST COMPLETE! XX SCH (22:20)
[2022-10-09] MEDS ORDERED: NITROGLYCERIN 0.4MG SUBL TABLET SL PRN (22:45)
[2022-10-09] MEDS ORDERED: ALBUTEROL 90 MCG/ACT 8GM HFA INHALER INH PRN (22:45)
[2022-10-09] MEDS: ATORVASTATIN 20 MG TAB PO SCH (23:34)
[2022-10-09] MEDS: METOPROLOL TART 25 MG TABLET PO SCH (23:34)
[2022-10-10] VITALS (7 sets, daily range): BP systolic 115–136; BP diastolic 57–82; TEMP 96.7–98.6; O2SAT 95–99
[2022-10-10 03:12] LABS: HEMATOCRIT 27.1 % (42.0-52.0); HEMOGLOBIN 8.7 g/dl (13.5-17.5); MEAN CORPUSCULAR HEMOGLOBIN 27.9 pg (27.0-33.0); MEAN CORPUSCULAR HGB CONC 32.1 g/dl (32.0-36.5); MEAN CORPUSCULAR VOLUME 86.9 fl (80.0-96.0); PLATELET COUNT, AUTOMATED 148 10^3/uL (150-450); RED BLOOD COUNT 3.12 10^6/uL (4.30-6.10); WHITE BLOOD COUNT 6.9 10^3/uL (4.0-10.0)
[2022-10-10] MEDS: NS 1,000 ML IV SCH (05:32)
[2022-10-10 05:40] LABS: HEMOGLOBIN 8.6 g/dl (13.5-17.5); MEAN CORPUSCULAR HEMOGLOBIN 27.6 pg (27.0-33.0); MEAN CORPUSCULAR HGB CONC 31.9 g/dl (32.0-36.5); MEAN CORPUSCULAR VOLUME 86.5 fl (80.0-96.0); PLATELET COUNT, AUTOMATED 145 10^3/uL (150-450); RED BLOOD COUNT 3.12 10^6/uL (4.30-6.10); WHITE BLOOD COUNT 5.4 10^3/uL (4.0-10.0)
[2022-10-10 06:03] LABS: BLOOD UREA NITROGEN 29 MG/DL (9-23); CALCIUM LEVEL 8.5 MG/DL (8.3-10.6); CARBON DIOXIDE LEVEL 22 MMOL/L (20-31); CHLORIDE LEVEL 111 MMOL/L (98-107); CREATININE FOR GFR 1.08 MG/DL (0.70-1.30); GLOMERULAR FILTRATION RATE > 60.0 (>49); GLUCOSE, FASTING 105 MG/DL (74-106); POTASSIUM SERUM 3.8 MMOL/L (3.5-5.1); SODIUM LEVEL 142 MMOL/L (136-145)
[2022-10-10] MEDS: INSULIN LISPRO (NovoLOG) PER UNIT SC SCH ×4 (07:30→20:08)
[2022-10-10 08:02] LABS: HEMATOCRIT 27.1 % (42.0-52.0); HEMOGLOBIN 8.7 g/dl (13.5-17.5)
[2022-10-10] MEDS: MULTIVITAMINS/MINERALS THERAP 1 TAB PO SCH (08:34)
[2022-10-10] MEDS: FOLIC ACID 1MG TAB PO SCH (08:35)
[2022-10-10] MEDS: PANTOPRAZOLE 40MG VIAL IV SCH ×2 (08:35→20:07)
[2022-10-10] MEDS: METOPROLOL TART 25 MG TABLET PO SCH ×2 (08:39→20:08)
[2022-10-10] MEDS ORDERED: OMEPRAZOLE 20MG CAP PO SCH (09:00)
[2022-10-10] MEDS ORDERED: FUROSEMIDE 20MG/2ML VIAL IV ONE (11:00)
[2022-10-10] MEDS: NICOTINE 21MG/24HR 1 EA TRANSDERMAL TD SCH (11:25)
[2022-10-10 15:58] LABS: HEMATOCRIT 30.7 % (42.0-52.0); HEMOGLOBIN 9.8 g/dl (13.5-17.5)
[2022-10-10] MEDS: SUCRALFATE 1 GM TAB PO SCH ×2 (17:14→23:49)
[2022-10-10] MEDS: ATORVASTATIN 20 MG TAB PO SCH (20:07)
[2022-10-11] MEDS: SUCRALFATE 1 GM TAB PO SCH ×4 (05:18→23:42)
[2022-10-11 05:19] VITALS: BP 144/67; TEMP 97.7; O2SAT 98
[2022-10-11 05:39] LABS: BASO % 0.7 % (0.0-1.0); EOS # 0.1 10^3/uL (0.0-0.5); EOS % 2.4 % (0.0-3.0); HEMATOCRIT 31.3 % (42.0-52.0); LYMPH # 1.2 10^3/uL (1.5-5.0); LYMPH % 22.7 % (24.0-44.0); MEAN CORPUSCULAR HEMOGLOBIN 27.4 pg (27.0-33.0); MEAN CORPUSCULAR HGB CONC 31.9 g/dl (32.0-36.5); MEAN CORPUSCULAR VOLUME 85.8 fl (80.0-96.0); MONO # 0.5 10^3/uL (0.0-0.8); MONO % 8.4 % (2.0-8.0); NEUTROPHILS # 3.5 10^3/uL (1.5-8.5); NEUTROPHILS % 65.2 % (36.0-66.0); PLATELET COUNT, AUTOMATED 166 10^3/uL (150-450); RED BLOOD COUNT 3.65 10^6/uL (4.30-6.10); WHITE BLOOD COUNT 5.3 10^3/uL (4.0-10.0)
[2022-10-11 06:15] LABS: BLOOD UREA NITROGEN 24 MG/DL (9-23); CALCIUM LEVEL 8.3 MG/DL (8.3-10.6); CARBON DIOXIDE LEVEL 24 MMOL/L (20-31); CHLORIDE LEVEL 107 MMOL/L (98-107); CREATININE FOR GFR 1.16 MG/DL (0.70-1.30); GLOMERULAR FILTRATION RATE > 60.0 (>49); GLUCOSE, FASTING 148 MG/DL (74-106); POTASSIUM SERUM 3.9 MMOL/L (3.5-5.1); SODIUM LEVEL 139 MMOL/L (136-145)
[2022-10-11] MEDS: NICOTINE 21MG/24HR 1 EA TRANSDERMAL TD SCH (08:29)
[2022-10-11] MEDS: PANTOPRAZOLE 40MG VIAL IV SCH ×2 (08:46→20:08)
[2022-10-11] MEDS: MULTIVITAMINS/MINERALS THERAP 1 TAB PO SCH (08:49)
[2022-10-11] MEDS: INSULIN LISPRO (NovoLOG) PER UNIT SC SCH ×5 (08:49→19:37)
[2022-10-11] MEDS: FOLIC ACID 1MG TAB PO SCH (08:50)
[2022-10-11] MEDS: METOPROLOL TART 25 MG TABLET PO SCH ×2 (08:50→20:08)
[2022-10-11] MEDS ORDERED: MIRALAX *UNIT DOSE* 17GM PACKET PO PRN (13:45)
[2022-10-11] MEDS ORDERED: OMEP40CA4 PO (14:54)
[2022-10-11 14:58] VITALS: BP 132/60; TEMP 97.9; O2SAT 98
[2022-10-11] MEDS ORDERED: GOLYTELY SOLN 4000 ML BTL PO ONE (17:00)
[2022-10-11] MEDS: ATORVASTATIN 20 MG TAB PO SCH (20:08)
[2022-10-11 20:10] VITALS: BP 138/66; TEMP 97.8; O2SAT 100
[2022-10-12] MEDS: SUCRALFATE 1 GM TAB PO SCH ×2 (05:21→12:08)
[2022-10-12 06:00] VITALS: BP 135/64; TEMP 97.6; O2SAT 99
[2022-10-12 07:00] LABS: BASO % 0.7 % (0.0-1.0); EOS # 0.1 10^3/uL (0.0-0.5); EOS % 2.5 % (0.0-3.0); HEMATOCRIT 28.8 % (42.0-52.0); HEMOGLOBIN 9.4 g/dl (13.5-17.5); LYMPH % 23.2 % (24.0-44.0); MEAN CORPUSCULAR HEMOGLOBIN 27.9 pg (27.0-33.0); MEAN CORPUSCULAR HGB CONC 32.6 g/dl (32.0-36.5); MEAN CORPUSCULAR VOLUME 85.5 fl (80.0-96.0); MONO # 0.4 10^3/uL (0.0-0.8); MONO % 9.7 % (2.0-8.0); NEUTROPHILS # 2.8 10^3/uL (1.5-8.5); NEUTROPHILS % 63.2 % (36.0-66.0); PLATELET COUNT, AUTOMATED 155 10^3/uL (150-450); RED BLOOD COUNT 3.37 10^6/uL (4.30-6.10); WHITE BLOOD COUNT 4.4 10^3/uL (4.0-10.0)
[2022-10-12 07:23] LABS: BLOOD UREA NITROGEN 17 MG/DL (9-23); CARBON DIOXIDE LEVEL 28 MMOL/L (20-31); CHLORIDE LEVEL 109 MMOL/L (98-107); CREATININE FOR GFR 0.92 MG/DL (0.70-1.30); GLOMERULAR FILTRATION RATE > 60.0 (>49); GLUCOSE, FASTING 123 MG/DL (74-106); POTASSIUM SERUM 3.7 MMOL/L (3.5-5.1); SODIUM LEVEL 143 MMOL/L (136-145)
[2022-10-12] MEDS: INSULIN LISPRO (NovoLOG) PER UNIT SC SCH ×3 (07:34→16:56)
[2022-10-12] MEDS: PANTOPRAZOLE 40MG VIAL IV SCH (08:32)
[2022-10-12] MEDS: MULTIVITAMINS/MINERALS THERAP 1 TAB PO SCH (08:32)
[2022-10-12] MEDS: FOLIC ACID 1MG TAB PO SCH (08:32)
[2022-10-12] MEDS: NICOTINE 21MG/24HR 1 EA TRANSDERMAL TD SCH (08:33)
[2022-10-12 08:35] VITALS: BP 121/57
[2022-10-12] MEDS: METOPROLOL TART 25 MG TABLET PO SCH (08:35)
[2022-10-12] MEDS ORDERED: MAGNESIUM CITRATE 300ML BTL PO ONE (09:00)
[2022-10-12] MEDS ORDERED: fentaNYL 100 MCG/2 ML INJECTION As Ordered ONE (14:49)
[2022-10-12] MEDS ORDERED: propofoL 200 MG/20 ML VIAL As Ordered ONE ×3 (14:51→15:29)
[2022-10-12] MEDS ORDERED: ePHEDrine SULFATE 25 MG/5 ML(5MG/ML) SYRINGE As Ordered ONE (15:06)
[2022-10-12] MEDS ORDERED: PHENYLephrine 500MCG 5ML (100MCG/ML) SYRINGE As Ordered ONE ×3 (15:07→15:45)
[2022-10-12] MEDS ORDERED: SIMETHICONE 40MG/0.6ML DROPS 30ML As Ordered ONE (15:59)
[2022-10-12 16:04] VITALS: TEMP 97.7; O2SAT 96
[2022-10-12 17:00] VITALS: BP 107/54
== END 2022-10-12 17:56 | disposition home or self-care (01) ==
LOC: M ED 18:30 → M ED INP 21:05 → INTOOBSV 21:05 → M MS4PR 10-10 15:19
PROVIDERS: ADMIT Internal Medicine; ATTEND Internal Medicine
DX: D12.3 Benign neoplasm of transverse colon (principal); K55.20 Angiodysplasia of colon without hemorrhage; K64.8 Other hemorrhoids; K92.1 Melena; Z98.0 Intestinal bypass and anastomosis status; K31.819 Angiodysplasia of stomach and duodenum without bleeding; K92.2 Gastrointestinal hemorrhage, unspecified; D62 Acute posthemorrhagic anemia; F17.210 Nicotine dependence, cigarettes, uncomplicated; Z88.8 Allergy status to other drugs, medicaments and biological substances; Z79.899 Other long term (current) drug therapy
CPT/HCPCS: 36415; 36430; 44366; 45385; 71045; 80048; 85014; 85018; 85025; 85027; 86850; 86900; 86901; 86920; 87635; 88305; 93005; 93041; 94760; 96361; 96365; 96366; 96375; 96376; 99285; C9113; G0378; J1815; J1940; J2371; J3010; P9016

== ENCOUNTER → 2022-10-28 | Outpatient (CLI) | payer MEDICARE, MEDICAID ==
[~2022-10-28] MED LIST changes: +C-101TAB3 PO
== END ==
LOC: M RAD 17:26
PROVIDERS: ATTEND Internal Medicine Gastroenterology
DX: D50.0 Iron deficiency anemia secondary to blood loss (chronic) (principal); K59.04 Chronic idiopathic constipation

== ENCOUNTER → 2023-05-25 | Outpatient (CLI) | payer MEDICARE, MEDICAID | LOC: M RAD 14:40 | PROVIDERS: ATTEND Internal Medicine Pulmonary Disease | DX: Z12.2 Encounter for screening for malignant neoplasm of respiratory organs (principal); F17.218 Nicotine dependence, cigarettes, with other nicotine-induced disorders ==

== ENCOUNTER 2023-12-04 14:23 | Emergency (ER) | payer MEDICAID, MEDICARE, OTHER ==
[~2023-12-04] VITALS: Ht 177.8 cm; Wt 118.0 kg
[~2023-12-04 14:23] MED LIST changes: +GLIP10TA15 PO; -GLIP10TA6 PO
[2023-12-04] MEDS ORDERED: OMEP40CA5 (14:38)
[2023-12-04] MEDS ORDERED: FURO20TA2 (14:38)
[2023-12-04 16:21] LABS: HEMATOCRIT 38.9 % (42.0-52.0); HEMOGLOBIN 12.7 g/dl (13.5-17.5); MEAN CORPUSCULAR HEMOGLOBIN 28.9 pg (27.0-33.0); MEAN CORPUSCULAR HGB CONC 32.6 g/dl (32.0-36.5); MEAN CORPUSCULAR VOLUME 88.6 fl (80.0-96.0); PLATELET COUNT, AUTOMATED 203 10^3/uL (150-450); RED BLOOD COUNT 4.39 10^6/uL (4.30-6.10); WHITE BLOOD COUNT 6.8 10^3/uL (4.0-10.0)
[2023-12-04 16:33] LABS: INR 1.07; PARTIAL THROMBOPLASTIN TIME 27.7 SECONDS (24.8-34.2); PROTHROMBIN TIME 13.5 SECONDS (12.5-14.5)
[2023-12-04 16:42] LABS: ATYPICAL LYMPH 2 % (0-5); EOSINOPHILS 1 % (0-3); LYMPHOCYTES 30 % (16-44); MONOCYTES 7 % (0-5); NEUTROPHILS 60 % (28-66); PLATELET ESTIMATE NORMAL (NORMAL)
[2023-12-04 16:51] LABS: LIPASE 60 U/L (12-53)
[2023-12-04 16:53] LABS: ALKALINE PHOSPHATASE 78 U/L (46-116); ALT/SGPT 32 U/L (7.0-40); AST/SGOT 26 U/L (<34); BILIRUBIN,DIRECT 0.2 MG/DL (<0.4); BILIRUBIN,TOTAL 0.4 MG/DL (0.3-1.2); BLOOD UREA NITROGEN 32 MG/DL (9-23); CALCIUM LEVEL 9.5 MG/DL (8.3-10.6); CARBON DIOXIDE LEVEL 29 MMOL/L (20-31); CHLORIDE LEVEL 107 MMOL/L (98-107); CREATININE FOR GFR 1.23 MG/DL (0.70-1.30); GLOMERULAR FILTRATION RATE > 60.0 (>42); GLUCOSE, FASTING 115 MG/DL (74-106); POTASSIUM SERUM 4.5 MMOL/L (3.5-5.1); SODIUM LEVEL 141 MMOL/L (136-145); TOTAL PROTEIN 7.2 G/DL (5.7-8.2)
[2023-12-04 21:58] VITALS: BP 161/68; TEMP 97.9; O2SAT 98
[2023-12-04] MEDS ORDERED: GLIP10TA PO (22:01)
[2023-12-04] MEDS ORDERED: DULA3PEN SQ (22:01)
[2023-12-04] MEDS ORDERED: NORV5TAB PO (22:01)
[2023-12-04] MEDS ORDERED: VITA1CAP25 PO (22:01)
[2023-12-04] MEDS ORDERED: JARD1TAB PO (22:01)
[2023-12-04] MEDS ORDERED: THERTAB52 PO (22:01)
[2023-12-04] MEDS ORDERED: HUMI80KI SC (22:01)
[2023-12-04] MEDS ORDERED: MUCI30TA5 PO (22:01)
[2023-12-04] MEDS ORDERED: HOME MED LIST COMPLETE! XX SCH (22:05)
== END 2023-12-04 22:11 | disposition left against medical advice (07) ==
LOC: M ED 14:23
DX: K92.2 Gastrointestinal hemorrhage, unspecified (principal); E11.9 Type 2 diabetes mellitus without complications; K21.9 Gastro-esophageal reflux disease without esophagitis; I10 Essential (primary) hypertension; E78.5 Hyperlipidemia, unspecified; J44.9 Chronic obstructive pulmonary disease, unspecified; F17.210 Nicotine dependence, cigarettes, uncomplicated; Z79.4 Long term (current) use of insulin; Z79.84 Long term (current) use of oral hypoglycemic drugs; Z79.810 Long term (current) use of selective estrogen receptor modulators (SERMs); Z79.899 Other long term (current) drug therapy; Z53.9 Procedure and treatment not carried out, unspecified reason

== ENCOUNTER → 2024-01-21 | Outpatient (CLI) | payer MEDICARE ==
[~2024-01-21] MED LIST changes: +DULA3PEN SQ; +FURO20TA2; +GLIP10TA PO; +HUMI80KI SC; +MUCI30TA5 PO; +NORV5TAB PO; +OMEP40CA5; +THERTAB52 PO; +VITA1CAP25 PO
== END ==
LOC: M PLARAD 14:10
PROVIDERS: ATTEND Family Medicine
DX: R91.8 Other nonspecific abnormal finding of lung field (principal)
CPT/HCPCS: 78816; A9552

== ENCOUNTER 2024-10-01 06:22 | Day surgery (SDC) | payer MEDICARE, MEDICAID ==
[~2024-10-01] VITALS: Ht 177.8 cm; Wt 123.4 kg
[~2024-10-01 06:22] MED LIST changes: +PHENYLEPHRINE 10% OPHTH SOL 5ML OS PRN
[2024-10-01] MEDS: OFLOXACIN 0.3 % (OCUFLOX) OPTH SOL 5ML OS ONE (06:50)
[2024-10-01] MEDS: LIDOCAINE 3.5% 1 ML OPHTH TOPICAL GEL OU ONE (06:51)
[2024-10-01] MEDS: PHENYLEPHRINE 2.5% OPHTH SOL 2ML OS SCH (06:51)
[2024-10-01] MEDS: CYCLOPENTOLATE 1% OPHTH SOLN 2 ML BTL OS SCH (06:51)
[2024-10-01] MEDS: TROPICAMIDE 1% OPHTH SOLN 15ML OS SCH (06:51)
[2024-10-01] MEDS: LIDOCAINE 1% SDV 5 ML VIAL As Ordered ONE (08:07)
[2024-10-01] MEDS: CEFUROXIME 1 MG/0.1 ML INTRACAMERAL INJ As Ordered ONE (08:07)
[2024-10-01] MEDS: BSS IRRIG/VANCO(10MG)/TOBRA(5MG)/EPINEPH(1:1000-0.5CC)500ML BAG-ORONLY As Ordered ONE (08:08)
[2024-10-01 08:15] VITALS: BP 124/62; TEMP 97.3; O2SAT 98
[2024-10-01] MEDS ORDERED: ROCURONIUM BROMIDE 50MG/5ML VIAL As Ordered ONE (15:51)
== END 2024-10-01 08:26 | disposition home or self-care (01) ==
LOC: M SDC 06:22
PROVIDERS: ATTEND Ophthalmology
DX: E11.36 Type 2 diabetes mellitus with diabetic cataract (principal); H25.12 Age-related nuclear cataract, left eye; I10 Essential (primary) hypertension; I25.10 Atherosclerotic heart disease of native coronary artery without angina pectoris; J44.9 Chronic obstructive pulmonary disease, unspecified; E78.00 Pure hypercholesterolemia, unspecified; G47.30 Sleep apnea, unspecified; Z79.899 Other long term (current) drug therapy; Z79.84 Long term (current) use of oral hypoglycemic drugs; Z79.85 Long-term (current) use of injectable non-insulin antidiabetic drugs; Z95.1 Presence of aortocoronary bypass graft; F17.210 Nicotine dependence, cigarettes, uncomplicated; K50.90 Crohn's disease, unspecified, without complications; Z90.49 Acquired absence of other specified parts of digestive tract
CPT/HCPCS: 66984; J0697; V2632

== ENCOUNTER → 2025-02-02 | Outpatient (CLI) | payer MEDICARE, MEDICAID ==
[~2025-02-02] MED LIST changes: +NITR0.4S14; -PHENYLEPHRINE 10% OPHTH SOL 5ML OS PRN
== END ==
LOC: M PLARAD 10:36
PROVIDERS: ATTEND Student in an Organized Health Care Education/Training Program
DX: C90.00 Multiple myeloma not having achieved remission (principal)
CPT/HCPCS: 78816; A9552